=== PATIENT | male | born 1975 | race Caucasian/White ===

== ENCOUNTER → 2017-05-17 | Outpatient (CLI) | payer OTHER ==
[2017-05-17 16:49] LABS: ALBUMIN 3.5 GM/DL (3.2-5.2); ALBUMIN/GLOBULIN RATIO 1.17 (1.00-1.93); ALKALINE PHOSPHATASE 80 U/L (45-117); ALT/SGPT 17 U/L (12-78); ANION GAP 5 MEQ/L (8-16); AST/SGOT 11 U/L (7-37); BILIRUBIN,TOTAL 0.7 MG/DL (0.2-1.0); BLOOD UREA NITROGEN 8 MG/DL (7-18); CALCIUM LEVEL 8.6 MG/DL (8.5-10.1); CARBON DIOXIDE LEVEL 30 MEQ/L (21-32); CHLORIDE LEVEL 106 MEQ/L (98-107); CREATININE FOR GFR 0.77 MG/DL (0.70-1.30); FERRITIN 69 NG/ML (26-388); GLOMERULAR FILTRATION RATE > 60.0 (>60); GLUCOSE, FASTING 90 MG/DL (70-105); MAGNESIUM LEVEL 2.4 MG/DL (1.8-2.4); PERCENT SATURATION 35.2 % (19.7-50.0); PHOSPHORUS LEVEL 3.5 MG/DL (2.5-4.9); POTASSIUM SERUM 4.7 MEQ/L (3.5-5.1); SODIUM LEVEL 141 MEQ/L (136-145); TOTAL IRON BINDING CAPACITY 321 UG/DL (250-450); TOTAL PROTEIN 6.5 GM/DL (6.4-8.2)
[2017-05-17 16:50] LABS: VITAMIN B12 LEVEL 307 PG/ML (247-911)
[2017-05-17 17:12] LABS: BASO % 0.4 % (0.0-1.0); EOS # 0.1 10^3/uL (0.0-0.50); EOS % 0.7 % (0.0-3.0); IMMATURE GRANULOCYTE % 0.3 % (0-0); LYMPH # 2.2 10^3/uL (1.5-4.5); LYMPH % 32.2 % (24.0-44.0); MEAN CORPUSCULAR HEMOGLOBIN 31.3 pg (27.0-33.0); MEAN CORPUSCULAR HGB CONC 33.1 g/dl (32.0-36.5); MEAN CORPUSCULAR VOLUME 94.7 fl (80.0-96.0); MONO # 0.5 10^3/uL (0.0-0.8); MONO % 6.9 % (0.0-5.0); NEUTROPHILS % 59.5 % (36.0-66.0); PLATELET COUNT, AUTOMATED 301 10^3/uL (150-450); RED CELL DISTRIBUTION WIDTH 12.6 % (11.5-14.5); WHITE BLOOD COUNT 6.7 10^3/uL (4.0-10.0)
[2017-05-20 11:33] LABS: PRETREATED FOLATE FOR RBCFOL 8.7 NG/ML
== END ==
LOC: M WUC 11:05
PROVIDERS: ATTEND Surgery
DX: K91.2 Postsurgical malabsorption, not elsewhere classified (principal); Z98.84 Bariatric surgery status

== ENCOUNTER 2018-02-12 07:50 | Emergency (ER) | payer OTHER, MEDICAID, SELFPAY ==
[2018-02-12 08:25] LABS: BASO # 0.1 10^3/uL (0.0-0.2); BASO % 0.8 % (0.0-1.0); HEMATOCRIT 50.1 % (42.0-52.0); HEMOGLOBIN 17.1 g/dl (13.5-17.5); IMMATURE GRANULOCYTE % 0.3 % (0-3.0); LYMPH # 1.3 10^3/uL (1.5-4.5); LYMPH % 14.8 % (24.0-44.0); MEAN CORPUSCULAR HEMOGLOBIN 31.8 pg (27.0-33.0); MEAN CORPUSCULAR HGB CONC 34.1 g/dl (32.0-36.5); MEAN CORPUSCULAR VOLUME 93.1 fl (80.0-96.0); MONO # 0.6 10^3/uL (0.0-0.8); MONO % 7.3 % (0.0-5.0); NEUTROPHILS # 6.6 10^3/uL (1.8-7.7); NEUTROPHILS % 76.8 % (36.0-66.0); PLATELET COUNT, AUTOMATED 329 10^3/uL (150-450); RED BLOOD COUNT 5.38 10^6/uL (4.30-6.10); RED CELL DISTRIBUTION WIDTH 13.6 % (11.5-14.5); WHITE BLOOD COUNT 8.7 10^3/uL (4.0-10.0)
[2018-02-12] MEDS: NS 1,000 ML IV ×2 (08:26)
[2018-02-12 08:36] LABS: INR 1.13; PARTIAL THROMBOPLASTIN TIME 28.3 SECONDS (25.4-37.6); PROTHROMBIN TIME 14.6 SECONDS (12.1-14.4)
[2018-02-12 08:44] LABS: AMPHETAMINES LEVEL URINE NEGATIVE (NEGATIVE); BARBITURATES URINE NEGATIVE (NEGATIVE); BENZODIAZEPINES URINE NEGATIVE (NEGATIVE); CANNABINOIDS URINE NEGATIVE (NEGATIVE); COCAINE METABOLITE URINE NEGATIVE (NEGATIVE); METHADONE URINE NEGATIVE (NEGATIVE); OPIATES URINE NEGATIVE (NEGATIVE); PHENCYCLIDINE URINE NEGATIVE (NEGATIVE)
[2018-02-12 08:57] LABS: ALBUMIN 3.7 GM/DL (3.2-5.2); ALBUMIN/GLOBULIN RATIO 1.16 (1.00-1.93); ALKALINE PHOSPHATASE 88 U/L (45-117); ALT/SGPT 21 U/L (12-78); ANION GAP 10 MEQ/L (8-16); AST/SGOT 28 U/L (7-37); BILIRUBIN,DIRECT 0.2 MG/DL (0.0-0.2); BILIRUBIN,TOTAL 2.3 MG/DL (0.2-1.0); BLOOD UREA NITROGEN 8 MG/DL (7-18); CALCIUM LEVEL 9.1 MG/DL (8.5-10.1); CARBON DIOXIDE LEVEL 25 MEQ/L (21-32); CHLORIDE LEVEL 106 MEQ/L (98-107); CPK CREATINE PHOSPHOKINASE 210 U/L (39-308); CREATININE FOR GFR 0.86 MG/DL (0.70-1.30); GLOMERULAR FILTRATION RATE > 60.0 (>60); GLUCOSE, FASTING 134 MG/DL (70-100); POTASSIUM SERUM 4.7 MEQ/L (3.5-5.1); SALICYLATE LEVEL < 1.7 MG/DL (5.0-30.0); SODIUM LEVEL 141 MEQ/L (136-145); TOTAL PROTEIN 6.9 GM/DL (6.4-8.2)
[2018-02-12 08:58] LABS: ETHYL ALCOHOL (ETHANOL) < 0.003 % (0.000-0.010)
[2018-02-12 08:59] LABS: ACETAMINOPHEN LEVEL < 2.0 UG/ML (10.0-30.0)
[2018-02-13 06:48] LABS: FOLATE 16.2 NG/ML; VITAMIN B12 LEVEL 192 PG/ML
== END 2018-02-12 10:46 | disposition home or self-care (01) ==
LOC: M ED 07:50
DX: Z71.1 Person with feared health complaint in whom no diagnosis is made (principal); E78.9 Disorder of lipoprotein metabolism, unspecified; F33.9 Major depressive disorder, recurrent, unspecified; Z98.0 Intestinal bypass and anastomosis status; Z87.891 Personal history of nicotine dependence; Z84.89 Family history of other specified conditions; Z79.899 Other long term (current) drug therapy
CPT/HCPCS: 93005

== ENCOUNTER 2018-02-24 20:37 | Emergency (ER) | payer OTHER, MEDICAID ==
[2018-02-24 21:52] LABS: HEMATOCRIT 42.8 % (42.0-52.0); HEMOGLOBIN 14.5 g/dl (13.5-17.5); MEAN CORPUSCULAR HEMOGLOBIN 31.9 pg (27.0-33.0); MEAN CORPUSCULAR HGB CONC 33.9 g/dl (32.0-36.5); MEAN CORPUSCULAR VOLUME 94.1 fl (80.0-96.0); PLATELET COUNT, AUTOMATED 278 10^3/uL (150-450); RED BLOOD COUNT 4.55 10^6/uL (4.30-6.10); RED CELL DISTRIBUTION WIDTH 13.8 % (11.5-14.5); WHITE BLOOD COUNT 8.5 10^3/uL (4.0-10.0)
[2018-02-24 22:11] LABS: AMPHETAMINES LEVEL URINE NEGATIVE (NEGATIVE); BARBITURATES URINE NEGATIVE (NEGATIVE); BENZODIAZEPINES URINE NEGATIVE (NEGATIVE); CANNABINOIDS URINE NEGATIVE (NEGATIVE); COCAINE METABOLITE URINE NEGATIVE (NEGATIVE); METHADONE URINE NEGATIVE (NEGATIVE); OPIATES URINE NEGATIVE (NEGATIVE); PHENCYCLIDINE URINE NEGATIVE (NEGATIVE)
[2018-02-24 22:15] LABS: ACETAMINOPHEN LEVEL < 2.0 UG/ML (10.0-30.0); ALBUMIN 3.1 GM/DL (3.2-5.2); ALBUMIN/GLOBULIN RATIO 1.15 (1.00-1.93); ALKALINE PHOSPHATASE 69 U/L (45-117); ALT/SGPT 18 U/L (12-78); ANION GAP 8 MEQ/L (8-16); AST/SGOT 11 U/L (7-37); BILIRUBIN,DIRECT < 0.1 MG/DL (0.0-0.2); BILIRUBIN,TOTAL 0.2 MG/DL (0.2-1.0); BLOOD UREA NITROGEN 5 MG/DL (7-18); CALCIUM LEVEL 8.1 MG/DL (8.5-10.1); CARBON DIOXIDE LEVEL 26 MEQ/L (21-32); CHLORIDE LEVEL 113 MEQ/L (98-107); CREATININE FOR GFR 0.65 MG/DL (0.70-1.30); ETHYL ALCOHOL (ETHANOL) 0.164 % (0.000-0.010); GLOMERULAR FILTRATION RATE > 60.0 (>60); GLUCOSE, FASTING 82 MG/DL (70-100); POTASSIUM SERUM 3.6 MEQ/L (3.5-5.1); SALICYLATE LEVEL 3.6 MG/DL (5.0-30.0); SODIUM LEVEL 147 MEQ/L (136-145); TOTAL PROTEIN 5.8 GM/DL (6.4-8.2)
== END 2018-02-25 00:01 | disposition home or self-care (01) ==
LOC: M ED 02-25 00:01
DX: F10.220 Alcohol dependence with intoxication, uncomplicated (principal); Z98.84 Bariatric surgery status; Z79.899 Other long term (current) drug therapy
CPT/HCPCS: 80320

== ENCOUNTER → 2018-04-17 | Outpatient (CLI) | payer MEDICAID | LOC: M OUTALCOH 07:52 | DX: F10.20 Alcohol dependence, uncomplicated (principal) ==

== ENCOUNTER 2018-04-27 15:08 | Outpatient (RCR) | payer MEDICAID | END 2018-05-17 | LOC: M OUTALCOH 05-02 09:00 | DX: F10.20 Alcohol dependence, uncomplicated (principal); F17.200 Nicotine dependence, unspecified, uncomplicated ==

== ENCOUNTER 2018-05-19 08:24 | Outpatient (RCR) | payer MEDICAID | END 2018-06-16 | LOC: M OUTALCOH 08:24 | DX: F10.20 Alcohol dependence, uncomplicated (principal); F17.200 Nicotine dependence, unspecified, uncomplicated ==

== ENCOUNTER → 2018-07-17 | Outpatient (RCR) | payer MEDICAID ==
[~2018-07-17] MED LIST: B121000T PO; BUPR150T5; CALC600T60 PO; CITA-230; CITA-230 PO; DULO30CA47 PO; GABA600T4 PO; PRAZ5CAP PO; VITA200015 PO; VITMTA PO; VIVI380I IM
== END ==
LOC: M OUTALCOH 06-19 11:07
PROVIDERS: ATTEND Psychiatry & Neurology Psychiatry
DX: F10.20 Alcohol dependence, uncomplicated (principal); F17.200 Nicotine dependence, unspecified, uncomplicated

== ENCOUNTER 2018-07-26 13:30 | Inpatient (IN) | payer MEDICAID, OTHER ==
[~2018-07-26] VITALS: Ht 172.7 cm; Wt 90.7 kg
[~2018-07-26 13:30] MED LIST changes: -B121000T PO; -CALC600T60 PO; -CITA-230 PO; -DULO30CA47 PO; -GABA600T4 PO; -PRAZ5CAP PO; -VITA200015 PO; -VITMTA PO; -VIVI380I IM
[2018-07-26] MEDS ORDERED: PRAZ5CAP PO (13:42)
[2018-07-26] MEDS ORDERED: DULO30CA47 PO (13:42)
[2018-07-26] MEDS ORDERED: VIVI380I IM (13:45)
[2018-07-26] MEDS ORDERED: CITA-230 PO (13:45)
[2018-07-26] MEDS ORDERED: GABA600T4 PO (13:45)
[2018-07-26 14:41] LABS: HEMATOCRIT 43.3 % (42.0-52.0); HEMOGLOBIN 14.6 g/dl (13.5-17.5); MEAN CORPUSCULAR HEMOGLOBIN 30.8 pg (27.0-33.0); MEAN CORPUSCULAR HGB CONC 33.7 g/dl (32.0-36.5); MEAN CORPUSCULAR VOLUME 91.4 fl (80.0-96.0); PLATELET COUNT, AUTOMATED 302 10^3/uL (150-450); RED BLOOD COUNT 4.74 10^6/uL (4.30-6.10); WHITE BLOOD COUNT 8.7 10^3/uL (4.0-10.0)
[2018-07-26 15:06] LABS: AMPHETAMINES LEVEL URINE NEGATIVE (NEGATIVE); BARBITURATES URINE NEGATIVE (NEGATIVE); BENZODIAZEPINES URINE NEGATIVE (NEGATIVE); CANNABINOIDS URINE NEGATIVE (NEGATIVE); COCAINE METABOLITE URINE NEGATIVE (NEGATIVE); METHADONE URINE NEGATIVE (NEGATIVE); OPIATES URINE NEGATIVE (NEGATIVE); PHENCYCLIDINE URINE NEGATIVE (NEGATIVE)
[2018-07-26 15:21] LABS: ACETAMINOPHEN LEVEL < 2.0 UG/ML (10.0-30.0); ALBUMIN 3.8 GM/DL (3.2-5.2); ALT/SGPT 16 U/L (12-78); BILIRUBIN,DIRECT 0.1 MG/DL (0.0-0.2); BILIRUBIN,TOTAL 0.5 MG/DL (0.2-1.0); BLOOD UREA NITROGEN 6 MG/DL (7-18); CALCIUM LEVEL 8.9 MG/DL (8.5-10.1); CARBON DIOXIDE LEVEL 29 MEQ/L (21-32); CHLORIDE LEVEL 108 MEQ/L (98-107); CREATININE FOR GFR 0.91 MG/DL (0.70-1.30); ETHYL ALCOHOL (ETHANOL) < 0.003 % (0.000-0.010); GLOMERULAR FILTRATION RATE > 60.0 (>60); GLUCOSE, FASTING 88 MG/DL (70-100); POTASSIUM SERUM 4.1 MEQ/L (3.5-5.1); SALICYLATE LEVEL 2.9 MG/DL (5.0-30.0); SODIUM LEVEL 143 MEQ/L (136-145); THYROID STIMULATING HORMONE 0.798 uIU/ML (0.358-3.740); TOTAL PROTEIN 6.3 GM/DL (6.4-8.2)
[2018-07-26] MEDS ORDERED: B121000T PO (17:40)
[2018-07-26] MEDS ORDERED: VITA200015 PO (17:40)
[2018-07-26] MEDS ORDERED: VITMTA PO (17:40)
[2018-07-26] MEDS ORDERED: CALC600T60 PO (17:40)
[2018-07-26] MEDS ORDERED: hydrOXYzine 25 MG TAB PO PRN (18:00)
[2018-07-26] MEDS ORDERED: ACETAMINOPHEN TAB 650MG DOSE (2X325MG) PO PRN (18:00)
[2018-07-26] MEDS ORDERED: MOM 30ML SUSPENSION UDC PO PRN (18:00)
[2018-07-26] MEDS ORDERED: MAALOX 30 ML SUSP *UDC PO PRN (18:00)
[2018-07-26] MEDS: traZODone 50 MG TAB PO PRN (21:27)
[2018-07-27 07:12] VITALS: BP 108/57
[2018-07-27] MEDS: NICOTINE 14 MG/24 HR TRANSDERMAL TD SCH (08:52)
--- NOTE | 2018-07-27 09:28 | HPEPDOC ---
[facility] Medical History & Physical Date of Admission Jul 26, 2018 History and Physical PCP: Dr Cohen ATTENDING: Dr. Evan Rodriguez HPI: 42 yo M admitted to [facility] for unspecified depressive disorder, being medically examined today. No acute medical complaints today. Patient states he takes prazosin for history of nightmares. He takes gabapentin for his anxiety. Vivitrol is prescribed as per Dr. Vallecillo. Denies any fevers, chills, weakness, fatigue, VASQUEZ, CP, SOB, cough, palpitations, abdominal pain, N/V/D or changes in bowel or bladder habits. PMHx: Anxiety Depression PTSD Alcohol use PSHX: Gastric bypass procedure. BMI currently 28.3. Right lower extremity fracture Left knee arthroscopy SOCHX: Resides in: [facility] [place][Note 2] Marital Status: Kids: 3 Employment: Disabled Tobacco use: 2 cigars per day ETOH: Patient states his last drink was 11/19/17, he attended rehabilitation. Illicit Drugs: Denies IV Drug Use: Denies Tattoos done unprofessionally: Denies FAMHX: Mother: Alive, hypertension, depression, CAD/CABG, gastric bypass Father: Alive, pacemaker Siblings: 3 brothers, 3 sisters Alive, history of COPD, gastric bypass, diabetes Children: Alive, well ROS: As noted in HPI, otherwise 11pt ROS of systems reviewed and remarkable only for patient states he has been having some right ankle pain and has been using a brace. He does not recall any injury. He has not had any imaging completed. He takes Tylenol as needed. PE: GEN: 42 yo M, appears stated age. Well-nourished, well developed. No acute distress. Alert and oriented x 3. Pleasant, interactive. HEENT: Normocephalic, atraumatic. Pupils are equal, round, and reactive to light. Extraocular movements are intact. No nystagmus appreciated. Sclera are nonicteric. Conjunctiva without injection. Nose midline. Nasal turbinates with out bogginess. EACs both patent BL. TMs both visualized and berg with good cone of light, no bulging or erythema. No facial asymmetry. Moist mucous membranes. Dentition fair. Pharynx pink and moist, no cobblestoning. Neck supple, trachea midline. No lymphadenopathy or thyromegaly appreciated. CHEST: Regular rate and rhythm, +S1, +S2 LUNGS: Clear to auscultation bilaterally. No wheezes, rales, or rhonchi. Breathing appears symmetric and easy. Patient is speaking in full sentences. No accessory muscle use. ABD: Round, soft, non-tender, non-distended. +Bowel sounds throughout. No rebound or guarding. No costovertebral angle tenderness. EXT: Pulses 2+ bilaterally dorsalis pedis and radial. No lower extremity edema appreciated. SKIN: [place], dry, warm. Capillary refill <2sec. No rashes. NEURO: Alert and oriented x 3. Cranial nerves III-XII are intact. No focal deficits appreciated. EKG: pending A&P: 42 yo M admitted to [facility] for unspecified depressive disorder 1. Psych. Plan per Psychiatry. Obtain baseline EKG to assure the safety of psychiatric medications as they can prolong the QT interval. 2. Nicotine dependence. Patch available. 3. Right ankle pain. Continue brace as needed. Check x-ray of right ankle. Continue Tylenol 650 mg every 6 hours as needed. 4. Follow up with PCP on discharge. 5. History of Substance use. Management per psychiatry. Vital Signs Vital Signs Date Time Temp Pulse Resp B/P (MAP) Pulse Ox O2 Delivery O2 Flow Rate FiO2 07/27/18 07:12 99.0 56 16 108/57 (74) 07/26/18 18:02 99 Room Air Laboratory Data Labs 24H Laboratory Tests 2 07/26/18 13:54: Nucleated Red Blood Cells % (auto) 0.0, Anion Gap 6L, Glomerular Filtration Rate > 60.0, Calcium Level 8.9, Aspartate Amino Transf (AST/SGOT) 11, Alanine Aminotransferase (ALT/SGPT) 16, Alkaline Phosphatase 84, Total Bilirubin 0.5, Direct Bilirubin 0.1, Total Protein 6.3L, Albumin 3.8, Albumin/Globulin Ratio 1.52, Thyroid Stimulating Hormone (TSH) 0.798, Salicylates Level 2.9L, Urine Amphetamines Screen NEGATIVE, Urine Benzodiazepines Screen NEGATIVE, Urine Opiates Screen NEGATIVE, Urine Methadone Screen NEGATIVE, Acetaminophen Level < 2.0L, Urine Barbiturates Screen NEGATIVE, Urine Phencyclidine Screen NEGATIVE, Urine Cocaine Metabolite Screen NEGATIVE, Urine Cannabinoids Screen NEGATIVE, Ethyl Alcohol Level < 0.003 CBC/BMP Laboratory Tests 07/26/18 13:54 Red Blood Count 4.74, Mean Corpuscular Volume 91.4, Mean Corpuscular Hemoglobin 30.8, Mean Corpuscular Hemoglobin Concent 33.7, Red Cell Distribution Width 12.6 Home Medications Scheduled Calcium Carbonate (Calcium) 600 Mg Tab, 600 MG PO DAILY Cholecalciferol (Vitamin D) 2,000 Unit Tab, 2,000 UNIT PO DAILY Citalopram Hydrobromide (Citalopram) 20 Mg Tab, 20 MG PO DAILY SUPPOSED TO START TAKING HALF DOSE TOMORROW (07/27/18) FOR 3 DAYS (STARTING DULOXETINE) Cyanocobalamin (B12) 1,000 Mcg Tab, 1,000 MCG PO DAILY Duloxetine Hydrochloride (Duloxetine Hydrochloride) 30 Mg Cap, 30 MG PO DAILY STARTING TUESDAY (07/30/18) Gabapentin (Gabapentin) 600 Mg Tab, 600 MG PO TID Multivitamins *[facility] STOCKED* (Thera M Plus *[facility] STOCKED*) 1 Tab Tab, 1 TAB PO DAILY Naltrexone (Vivitrol) 380 Mg Inj, 380 MG IM Q30D 16 Prazosin Hcl (Prazosin HCl) 5 Mg Cap, 5 MG PO QHS Allergies Coded Allergies: No Known Drug Allergy (Unverified Allergy, Unknown, 10/17/12) Veronica Veloz Jul 27, 2018 09:28
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
[2018-07-27] MEDS ORDERED: VENLAFAXINE **XR** 75MG CAPSULE PO ONE (12:45)
[2018-07-27] MEDS: busPIRone 5 MG TAB PO SCH ×2 (15:56→21:13)
[2018-07-27 18:00] VITALS: BP 119/65
[2018-07-27] MEDS: traZODone 50 MG TAB PO PRN (21:13)
--- NOTE | 2018-07-28 01:50 | REP ---
Clinical: Right ankle pain. Technique: AP, lateral, bilateral oblique views of the right ankle. Findings: Moderate post traumatic arthritic changes are appreciated. Evidence for old injury including two compression screws through the distal tibia. Degenerative changes include cortical irregularity and subchondral sclerosis with spurring along the tibial plafond with minimal medial joint space narrowing. Spurring at the medial malleolus and along the anterior margin of the talus also identified. No acute fracture dislocation. Impression: Moderate chronic post traumatic arthritic changes. Electronically Signed by Lawrence Hagen MD 07/28/2018 01:42 A
[2018-07-28 06:05] VITALS: BP 91/54
[2018-07-28] MEDS: VENLAFAXINE **XR** 75MG CAPSULE PO SCH (08:42)
[2018-07-28] MEDS: busPIRone 5 MG TAB PO SCH ×3 (08:42→20:54)
[2018-07-28] MEDS: NICOTINE 14 MG/24 HR TRANSDERMAL TD SCH (08:42)
--- NOTE | 2018-07-28 10:18 | MHIPNPDOC ---
[facility] Progress Note Progress Note DATE OF SERVICE: 07/28/18 HISTORY: Patient is a 42 -year-old , male, with a history of depression and PTSD treated at [facility] who was sent to ED after being seen at [facility] for routine appt endorsing depressed mood for the past 5 days that has now turned into anger and passive SI (better off sleeping and not waking up) due to multiple psychosocial stressors that include current having dispute with pt's kids from previous marriage worried they may not want to visit anymore, bad relationship with ex-, mother befriending ex-, and finances. Pt denied active SI, intent/plan. He endorsed a history of alcoholism and has been sober since 04/04 when he entered rehab (slipped up twice since, no alcohol since 06/21/18). He endorsed social anxiety and not wanting to be around people/crowds, history of panic attack in [facility] due to crowd, causes him to want to "live in the [place] alone with no one around.) Pt denies HI, hallucinations, delusions. Pt seen today and states he's been really depressed since he completed IOP for alcoholism at [facility]. States "last Tuesday my kids were visiting and blasted me with what kids didn't do. She told my children they were worthless." States "worthless is a trigger for me b/c I was told I was worthless by kids at school when I was a kid which is why I have PTSD." Pt states he he feels better today. Agreeable to medication adjustments. States was cross titrating celexa to cymbalta due to risk qt elevation with celexa and it not working. Recommended effexor xr instead of cymbalta (both SNRIs) as in my experience effexor more beneficial for mood and anxiety. Pt agreeable. Also agreeable to buspar rather than gabapentin for anxiety. Risks/benefits for both discussed. VITAL SIGNS: See below. NEW TEST RESULTS: See below. CURRENT MEDICATIONS: See below. MENTAL STATUS EXAMINATION: General Appearance: well groomed, appears stated age, hospital scubs/clothing Build: average Demeanor: average, other (pleasant, talkative - gave me whole story, hard to cut off and end interview (seemed to think it was a psychotherapy visit)) Eye Contact: average Activity: average, less anxious Behavior: cooperative Speech: clear, spontaneous, normal volume, reg/rate,rhythm,volume Mood: less depressed, less anxious Mood "better" Affect: full, appropriate, congruent, less anxious Thought Process: logical/linear, intact Thought Content (Delusions): none reported, denies SI, HI, AVH Thought Content (Other): none reported Thought Content (Aggressive): none reported Perception (Hallucinations): none reported Perception (Other): none reported Cognition (Impairment of): none reported Cognition(Intelligence Est.): average Oriented: Awake, Alert, Oriented times three Insight: fair Judgment: Fair Psychosis: Denies DIAGNOSES: PTSD Adjustment d/o with depression and anxiety alcohol use d/o in short term remission ASSESSMENT:Pt seen and states that his mood is ok as meds beneficial, anxiety is improved. States he spoke with his yesterday and that she complained to him that she was upset due to him not being home and helping her with the snow. States he slept well last night. Feels he is tolerating his medications and they're beneficial. He is not attending groups and highly encouraged to go as part of his treatment here. He denies insomnia, SI/HI, hallucinations, delusions. Pt feels safe here. MANAGEMENT PLAN: continue current plan Medications: effexor xr 75mg daily buspar 5mg tid prazosin 5mg qhs trazodone 50mg qhs prn insomnia TIME SPENT: 30 minutes. Patient is a 42 -year-old , male, with a history of depression and PTSD treated at [facility] who was sent to ED after being seen at [facility] for routine appt endorsing depressed mood for the past 5 days that has now turned into anger and passive SI (better off sleeping and not waking up) due to multiple psychosocial stressors that include current having dispute with pt's kids from previous marriage worried they may not want to visit anymore, bad relationship with ex- , mother befriending ex-, and finances. Pt denied active SI, intent/plan. He endorsed a history of alcoholism and has been sober since 04/04 when he entered rehab (slipped up twice since, no alcohol since 06/21/18). He endorsed social anxiety and not wanting to be around people/crowds, history of panic attack in [facility] due to crowd, causes him to want to "live in the [place] alone with no one around.) Pt denies HI, hallucinations, delusions. Pt seen today and states he's been really depressed since he completed IOP for alcoholism at [facility]. States "last Tuesday my kids were visiting and blasted me with what kids didn't do. She told my children they were worthless." States "worthless is a trigger for me b/c I was told I was worthless by kids at school when I was a kid which is why I have PTSD." Pt states he he feels better today. Agreeable to medication adjustments. States was cross titrating celexa to cymbalta due to risk qt elevation with celexa and it not working. Recommended effexor xr instead of cymbalta (both SNRIs) as in my experience effexor more beneficial for mood and anxiety. Pt agreeable. Also agreeable to buspar rather than gabapentin for anxiety. Risks/benefits for both discussed. Psychiatric Review of Systems Depression (2 or more weeks): depressed mood, difficulty concentrating, suicidal thoughts (passive) Rula (4 or more days of): irritable/elevated mood Psychosis: denies PTSD: history of trauma, nightmares and flashbacks, hypervigilance, avoidance of triggers, mood fluctuations Anxiety: gen/non-specific anxiety, situational anxiety, stressor related anxiety, panic attacks, other (social) Anxiety/ 6 months or more of: restlessness, keyed up, difficulty concentrating, irritability, muscle tension Past Psychiatric History Previous Psychiatric Diagnosis: depression, social anxiety Previous Psychiatric Admissions: denies Suicide Attempts: denies Psychiatric Follow-up: [facility] Psychiatric medications: cymbalta 30mg daily, celexa 20mg daily, Vivitrol 380mg im (07/02/18), gabapentin 600mg tid, prazosin 5mg qhs Past Medical History Medical Problems denies Head Injury: No Seizures: No Hospitalizations: No Surgeries: Yes (gastric bypass, rt leg and lt knee surgery) Family Medical/Psychiatric HX Medical Problems noncontributory Psychiatric Disorders: No Addiction: No Suicide Attemps/Completions: No Addiction History nicotine, alcohol (completely sober since 06/21/18 on Vivitrol and compliant) Social History Childhood: born and raised [facility], 2 parent home, youngest of 7 (3 brothers and sisters), bullied when in school. 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 [place] (resigned after ended rehab b/c triggering) Social Support: , mother Legal: denies Marital: , 1 9y/o child with current , 1 ex- he shares custody of 2 kids, 15 and 13, with (poor relationship with ex-) Mental Status Examination Mental Status Examination General Appearance: well groomed, appears stated age, hospital scubs/clothing Build: average Demeanor: average, other (pleasant, talkative - gave me whole story, hard to cut off and end interview (seemed to think it was a psychotherapy visit)) Eye Contact: average Activity: average, anxious Behavior: cooperative Speech: clear, spontaneous, normal volume, reg/rate,rhythm,volume Mood: depressed, anxious, irritable Mood "angry" Affect: full, appropriate, incongruent, anxious Thought Process: logical/linear, intact Thought Content (Delusions): none reported, denies SI, HI, AVH Thought Content (Other): none reported Thought Content (Aggressive): none reported Perception (Hallucinations): none reported Perception (Other): none reported Cognition (Impairment of): none reported Cognition(Intelligence Est.): average Oriented: Awake, Alert, Oriented times three Insight: fair Judgment: Fair Psychosis: Denies Diagnoses PTSD Adjustment d/o with depression and anxiety alcohol use d/o in short term remission Assement/Plan Assessment Pt with a history of PTSD and easily triggered by the word "worthless" feeling depressed, isolative, angry due to his current calling his children from a previous marriage worthless b/c they weren't doing what she told them right when she told them to do it. States that she hasn't apologized for her actions and will not accept accountability, how she may have affected him or his kids which is causing him more anger and depression, desire to isolate. Agreeable to med adjustments. Denies SI/HI, hallucinations, delusions. Denies passive SI as well. Feels safe here. Initial Treatment Plan 1. Patient was admitted on a 9.39 status. 2. Complete history was obtained. 3. With patients permission, family will be contacted and database will be expanded. 4. Patients medication regimen will be reviewed and changed accordingly. 5. Patient will be provided with protected environment. 6. Patient will be treated with individual, group, and milieu therapies. 7. Patient will receive supportive psych-education. 8. Discharge planning will commence immediately. 9. Outpatient follow-up treatment will be strongly recommended. 10. The initial treatment plan will focus initially on: * Depression. * Risk for suicide. * Substance abuse. 11. d/c cymbalta, celexa, gabapentin. Start effexor xr 75mg daily, buspar 5mg tid. Continue prazosin 5mg qhs. Vital Signs Vital Signs Date Time Temp Pulse Resp B/P (MAP) Pulse Ox O2 Delivery O2 Flow Rate FiO2 07/28/18 06:05 97.9 50 16 91/54 (66) Room Air 07/26/18 18:02 99 Current Medications Current Medications Acetaminophen (Tylenol Tab) 650 mg Q6HP PRN PO HEADACHE or DISCOMFORT Last administered on 07/27/18at 09:45; Start 07/26/18 at 18:00 Al Hydrox/Mg Hydrox/Simethicone (Mylanta) 30 ml Q4HP PRN PO HEARTBURN/INDIGESTION; Start 07/26/18 at 18:00 Buspirone HCl (Buspar) 5 mg TID PO Last administered on 07/28/18at 08:42; Start 07/27/18 at 16:00 Home Med (Med Rec Complete!) ASDIRECTED XX ; Start 07/26/18 at 17:45; Stop 07/26/18 at 17:45; Status DC Hydroxyzine HCl (Atarax) 25 mg Q6HP PRN PO ANXIETY/AGITATION; Start 07/26/18 at 18:00 Magnesium Hydroxide (Milk Of Magnesia) 30 ml DAILYPRN PRN PO CONSTIPATION; Start 07/26/18 at 18:00 Nicotine (Nicoderm Cq 14mg) 1 patch DAILY TD Last administered on 07/28/18at 08:42; Start 07/27/18 at 09:00 Trazodone HCl (Desyrel) 50 mg QHSP PRN PO INSOMNIA Last administered on 07/27/18at 21:13; Start 07/26/18 at 18:00 Venlafaxine HCl (Effexor Xr) 75 mg DAILY PO Last administered on 07/28/18at 08:42; Start 07/28/18 at 09:00 Allergies Coded Allergies: No Known Drug Allergy (Unverified Allergy, Unknown, 10/17/12) MICHAEL HUTCHINSON DO Jul 28, 2018 10:18 am
[2018-07-28 18:00] VITALS: BP 122/64
[2018-07-28] MEDS: traZODone 50 MG TAB PO PRN (20:54)
[2018-07-28] MEDS: PRAZOSIN 1 MG CAP PO SCH (20:54)
--- NOTE | 2018-07-28 21:47 | ECGEPIP ---
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 Electronically Signed On 07-28-2018 21:47:48 EST by Sterling Blackwood
[2018-07-29 06:20] VITALS: BP 112/56
[2018-07-29] MEDS: VENLAFAXINE **XR** 75MG CAPSULE PO SCH (08:19)
[2018-07-29] MEDS: busPIRone 5 MG TAB PO SCH ×3 (08:19→21:17)
[2018-07-29] MEDS: NICOTINE 14 MG/24 HR TRANSDERMAL TD SCH (08:20)
--- NOTE | 2018-07-29 17:48 | MHIPN ---
DATE: 07/29/2018 CHIEF COMPLAINT: Feels better. SUBJECTIVE: Seen for followup. Indicates has been feeling better, feels the medicines are working, he feels more confident, less anxious, less depressed. He says he has been sleeping well, appetite has been good. Says his is due to visit tomorrow, is a bit anxious about that. MENTAL STATUS EXAMINATION: He is neat. He is cooperative. No agitation, no psychomotor retardation. He is coherent. Affect is broad. Denies any thoughts of harming himself or anyone else. There is currently no evidence of any psychosis. Cognition is grossly intact. Judgment and insight fair. ASSESSMENT: Posttraumatic stress disorder. Adjustment disorder with depression and anxiety. Alcohol use disorder. PLAN: He is to continue with current care, observations, and encourage participation in activities in the unit. It is too soon for the venlafaxine and the BuSpar to benefit him, we discussed this. The fact that he is hospitalized, and has had time to contemplate on various matters, has possibly helped him as well. Further recommendations will be made depending on the clinical picture. Vital signs: Blood pressure 112/56, pulse 58, temperature 98.1.
[2018-07-29 18:00] VITALS: BP 108/62
[2018-07-29] MEDS: PRAZOSIN 1 MG CAP PO SCH (21:17)
[2018-07-29] MEDS: traZODone 50 MG TAB PO PRN (21:17)
[2018-07-30 06:00] VITALS: BP 107/55
[2018-07-30] MEDS: VENLAFAXINE **XR** 75MG CAPSULE PO SCH (09:07)
[2018-07-30] MEDS: busPIRone 5 MG TAB PO SCH ×3 (09:07→20:57)
[2018-07-30] MEDS: NICOTINE 14 MG/24 HR TRANSDERMAL TD SCH (09:07)
[2018-07-30 18:00] VITALS: BP 110/56
[2018-07-30] MEDS: traZODone 50 MG TAB PO PRN (20:58)
[2018-07-30 20:59] VITALS: BP 116/69
[2018-07-30] MEDS: PRAZOSIN 1 MG CAP PO SCH (20:59)
[2018-07-31 06:06] VITALS: BP 103/58
[2018-07-31] MEDS: VENLAFAXINE **XR** 75MG CAPSULE PO SCH (08:03)
[2018-07-31] MEDS: NICOTINE 14 MG/24 HR TRANSDERMAL TD SCH (08:03)
[2018-07-31] MEDS: busPIRone 5 MG TAB PO SCH (08:03)
--- NOTE | 2018-07-31 09:13 | MHIPN ---
DATE: 07/30/2018 CHIEF COMPLAINT: Says feels good. SUBJECTIVE: Seen for followup in the presence of staff. Says has generally been feeling good, is a bit anxious, his is due to visit later today, says he hopes it does not become a tense visit, per the patient says he is concerned she may express her anger at him being here. He wishes that they can talk about their relationship once he starts seeing his therapist. He is hoping that he will be discharged tomorrow, and that he will see his [facility] at [facility], he sees Keke Sargent, and has an appointment for that tomorrow. MENTAL STATUS EXAMINATION: Neat. Cooperative. Coherent. Affect broad. Denies any suicidal thoughts or intents. No homicidal ideas or intents. No evidence of psychosis. Cognition grossly intact. His judgment is good, it is improved. Insight is fair. ASSESSMENT: Post traumatic stress disorder by history. Adjustment disorder with depression and anxiety. Alcohol use disorder. PLAN: Continue current care. I would suggest encourage participation in activities in the unit. Should such progress continue, will be assessed tomorrow, before discharge. VITAL SIGNS: Blood pressure 107/55. Pulse 50. Temperature 97.4.
--- NOTE | 2018-07-31 09:17 | MHDSPDOC ---
[facility] Discharge Summary Discharge Summary DATE OF ADMISSION: Jul 26, 2018 at 5:49 pm DATE OF DISCHARGE: Jul 31, 2018 DISCHARGE DIAGNOSES: PTSD Adjustment d/o with depression and anxiety alcohol use d/o in short term remission REASON FOR ADMISSION: Patient is a 42 -year-old , male, with a history of depression and PTSD treated at [facility] who was sent to ED after being seen at [facility] for routine appt endorsing depressed mood for the past 5 days that has now turned into anger and passive SI (better off sleeping and not waking up) due to multiple psychosocial stressors that include current having dispute with pt's kids from previous marriage worried they may not want to visit anymore, bad relationship with ex-, mother befriending ex-, and finances. Pt denied active SI, intent/plan. He endorsed a history of alcoholism and has been sober since 04/04 when he entered rehab (slipped up twice since, no alcohol since 06/21/18). He endorsed social anxiety and not wanting to be around people/crowds, history of panic attack in [facility] due to crowd, causes him to want to "live in the [place] alone with no one around.) Pt denies HI, hallucinations, delusions. Pt seen today and states he's been really depressed since he completed IOP for alcoholism at [facility]. States "last Tuesday my kids were visiting and blasted me with what kids didn't do. She told my children they were worthless." States "worthless is a trigger for me b/c I was told I was worthless by kids at school when I was a kid which is why I have PTSD." Pt states he he feels better today. Agreeable to medication adjustments. States was cross titrating celexa to cymbalta due to risk qt elevation with celexa and it not working. Recommended effexor xr instead of cymbalta (both SNRIs) as in my experience effexor more beneficial for mood and anxiety. Pt agreeable. Also agreeable to buspar rather than gabapentin for anxiety. Risks/benefits for both discussed. CONSULTANTS INVOLVED: none TREATMENT AND PROGRESS ON THE UNIT : [facility], seen for psychiatric assessment and his outpatient cymbalta and celexa were dischontinued and he was started on effexor xr 75mg daily, buspar 5mg tid, and continued on prazosin 5mg qhs.. He was provided vistaril 25mg q6hr prn anxiety and trazodone 50mg qhs prn insomnia. Pt found his medications beneficial and tolerated them well. He attended groups daily during his stay. His symptoms improved with treatment. On day of discharge he denied depression, anxiety, insomnia, SI/HI, hallucinations, delusions. He was discharged home after family meeting with follow-up at [facility] substance abuse treatment program.. He felt safe for discharge. DISCHARGE ASSESSMENT: Pt seen and states that his mood is good and he's looking forward to going home today. States his family visited him over the weekend and it went well. States meds beneficial, mood and anxiety are improved. States he slept well last night. Feels he is tolerating his medications and they're beneficial. He is attending groups and finding them helpful. He denies depression, irritability, insomnia, SI/HI, hallucinations, delusions. Pt feels safe to be discharged home. MENTAL STATUS EXAMINATION ON DISCHARGE: General Appearance: well groomed, appears stated age, own clothing Build: average Demeanor: average, other (pleasant) Eye Contact: average Activity: average Behavior: cooperative Speech: clear, spontaneous, normal volume, reg/rate,rhythm,volume Mood: euthymic, full "good" Affect: full, appropriate, congruent Thought Process: logical/linear, intact Thought Content (Delusions): none reported, denies SI, HI, AVH Thought Content (Other): none reported Thought Content (Aggressive): none reported Perception (Hallucinations): none reported Perception (Other): none reported Cognition (Impairment of): none reported Cognition(Intelligence Est.): average Oriented: Awake, Alert, Oriented times three Insight: good Judgment: good Psychosis: Denies MEDICATIONS ON DISCHARGE: effexor xr 75mg daily buspar 5mg tid prazosin 5mg qhs trazodone 50mg qhs prn insomnia vistaril 25mg q6hr prn anxiety PLAN/FOLLOWUP ARRANGEMENTS: D/c home with follow-up at [facility] substance abuse treatment program. The amount of time spent in the coordination of care for this patient was approximately 30 minutes. Vital Signs/I&Os Vital Signs Date Time Temp Pulse Resp B/P (MAP) Pulse Ox O2 Delivery O2 Flow Rate FiO2 07/31/18 06:06 97.5 63 14 103/58 (73) Room Air 07/26/18 18:02 99 Medications Scheduled Buspirone HCl (Buspirone HCl) 5 Mg Tab, 5 MG PO TID for anxiety, #30 Calcium Carbonate (Calcium) 600 Mg Tab, 600 MG PO DAILY, (Reported) Cholecalciferol (Vitamin D) 2,000 Unit Tab, 2,000 UNIT PO DAILY, (Reported) Cyanocobalamin (B12) 1,000 Mcg Tab, 1,000 MCG PO DAILY, (Reported) Gabapentin (Gabapentin) 600 Mg Tab, 600 MG PO TID, (Reported) Multivitamins *[facility] STOCKED* (Thera M Plus *[facility] STOCKED*) 1 Tab Tab, 1 TAB PO DAILY, (Reported) Naltrexone (Vivitrol) 380 Mg Inj, 380 MG IM Q30D, (Reported) 16TH Prazosin Hcl (Prazosin HCl) 5 Mg Cap, 5 MG PO QHS, (Reported) Prazosin Hcl (Prazosin HCl) 5 Mg Cap, 5 MG PO QPM for nightmares, #10 Venlafaxine HCl (Venlafaxine HCl ER) 75 Mg Capcr, 75 MG PO DAILY for mood, #10 Scheduled PRN Hydroxyzine HCl (Hydroxyzine HCl) 25 Mg Tab, 25 MG PO Q6HP PRN for ANXIETY/AGITATION, #30 Trazodone HCl (Trazodone HCl) 50 Mg Tab, 50 MG PO QHSP PRN for INSOMNIA, #10 Allergies Coded Allergies: No Known Drug Allergy (Unverified Allergy, Unknown, 10/17/12) MICHAEL HUTCHINSON DO Jul 31, 2018 9:17 am
[2018-07-31] MEDS ORDERED: BUSP5TA PO (09:21)
[2018-07-31] MEDS ORDERED: HYDR-3363 PO (09:21)
[2018-07-31] MEDS ORDERED: PRAZ5CAP PO (09:21)
[2018-07-31] MEDS ORDERED: TRAZO50TA PO (09:21)
[2018-07-31] MEDS ORDERED: VENL75CA47 PO (09:21)
== END 2018-07-31 10:39 | disposition home or self-care (01) | DRG 755 ==
LOC: M ED 13:30 → M ED INP 17:49 → M PSY 18:52
PROVIDERS: ADMIT Psychiatry & Neurology Psychiatry; ATTEND Psychiatry & Neurology Psychiatry
DX: F43.10 Post-traumatic stress disorder, unspecified (principal); F41.9 Anxiety disorder, unspecified; F43.23 Adjustment disorder with mixed anxiety and depressed mood; Z72.89 Other problems related to lifestyle; Z79.899 Other long term (current) drug therapy; F17.210 Nicotine dependence, cigarettes, uncomplicated; M25.571 Pain in right ankle and joints of right foot

== ENCOUNTER 2018-08-11 14:00 | Outpatient (RCR) | payer MEDICAID ==
[~2018-08-11 14:00] MED LIST changes: +B121000T PO; +BUSP5TA PO; +CALC600T60 PO; +CITA-230 PO; +DULO30CA47 PO; +GABA600T4 PO; +HYDR-3363 PO; +PRAZ5CAP PO; +TRAZO50TA PO; +VENL75CA47 PO; +VITA200015 PO; +VITMTA PO; +VIVI380I IM
== END 2018-08-17 ==
LOC: M OUTALCOH 14:00
PROVIDERS: ATTEND Psychiatry & Neurology Psychiatry
DX: F10.20 Alcohol dependence, uncomplicated (principal); F17.200 Nicotine dependence, unspecified, uncomplicated

== ENCOUNTER → 2018-09-14 | Outpatient (RCR) | payer MEDICAID | LOC: M OUTALCOH 08-18 15:21 | PROVIDERS: ATTEND Psychiatry & Neurology Psychiatry | DX: F10.20 Alcohol dependence, uncomplicated (principal); F17.200 Nicotine dependence, unspecified, uncomplicated ==

== ENCOUNTER 2018-10-11 15:00 | Outpatient (RCR) | payer MEDICAID | END 2018-10-15 | LOC: M OUTALCOH 15:00 | PROVIDERS: ATTEND Psychiatry & Neurology Psychiatry | DX: F10.20 Alcohol dependence, uncomplicated (principal); F17.200 Nicotine dependence, unspecified, uncomplicated ==

== ENCOUNTER → 2018-11-01 | Outpatient (REF) | payer OTHER ==
[~2018-11-01] MED LIST changes: -CITA-230; -CITA-230 PO; +CITA20TA7; +CITA20TA7 PO
[2018-11-01 12:32] LABS: HEMOGLOBIN 14.2 g/dl (13.5-17.5); MEAN CORPUSCULAR HEMOGLOBIN 30.2 pg (27.0-33.0); MEAN CORPUSCULAR HGB CONC 32.3 g/dl (32.0-36.5); MEAN CORPUSCULAR VOLUME 93.6 fl (80.0-96.0); PLATELET COUNT, AUTOMATED 283 10^3/uL (150-450); WHITE BLOOD COUNT 7.7 10^3/uL (4.0-10.0)
[2018-11-01 13:12] LABS: ALBUMIN 3.8 GM/DL (3.2-5.2); ALT/SGPT 16 U/L (12-78); BILIRUBIN,TOTAL 0.6 MG/DL (0.2-1.0); BLOOD UREA NITROGEN 9 MG/DL (7-18); CALCIUM LEVEL 8.9 MG/DL (8.5-10.1); CARBON DIOXIDE LEVEL 30 MEQ/L (21-32); CHLORIDE LEVEL 106 MEQ/L (98-107); CHOLESTEROL LEVEL 168 MG/DL (<200); CREATININE FOR GFR 0.91 MG/DL (0.70-1.30); FERRITIN 32 NG/ML (26-388); FREE T4 0.91 NG/DL (0.76-1.46); GLOMERULAR FILTRATION RATE > 60.0 (>60); GLUCOSE, FASTING 94 MG/DL (70-100); HDL CHOLESTEROL 35 MG/DL (>40); LDL CHOLESTEROL 116 MG/DL (<100); NON-HDL-C 133 MG/DL; POTASSIUM SERUM 4.2 MEQ/L (3.5-5.1); SODIUM LEVEL 140 MEQ/L (136-145); THYROID STIMULATING HORMONE 0.821 uIU/ML (0.358-3.740); TOTAL 25(OH) VITAMIN D 48.3 NG/ML (30.0-100.0); TOTAL PROTEIN 6.2 GM/DL (6.4-8.2); TRIGLYCERIDES LEVEL 83 MG/DL (<150); VITAMIN B12 LEVEL 1384 PG/ML (247-911)
[2018-11-02 14:11] LABS: TESTOSTERONE FREE (DIRECT) 5.6 pg/mL (6.8-21.5)
== END ==
LOC: M SFHCADAM 10:02
PROVIDERS: ATTEND Family Medicine
DX: F33.2 Major depressive disorder, recurrent severe without psychotic features (principal); N52.9 Male erectile dysfunction, unspecified; G25.1 Drug-induced tremor; E78.5 Hyperlipidemia, unspecified; Z98.84 Bariatric surgery status; D51.8 Other vitamin B12 deficiency anemias; E55.9 Vitamin D deficiency, unspecified

== ENCOUNTER 2018-11-13 14:00 | Outpatient (RCR) | payer MEDICAID | END 2018-11-14 | LOC: M OUTALCOH 14:00 | PROVIDERS: ATTEND Psychiatry & Neurology Psychiatry | DX: F10.20 Alcohol dependence, uncomplicated (principal); F17.200 Nicotine dependence, unspecified, uncomplicated ==

== ENCOUNTER 2018-12-06 10:00 | Outpatient (RCR) | payer MEDICAID | END 2018-12-15 | LOC: M OUTALCOH 10:00 | PROVIDERS: ATTEND Psychiatry & Neurology Psychiatry | DX: F10.20 Alcohol dependence, uncomplicated (principal); F17.200 Nicotine dependence, unspecified, uncomplicated ==

== ENCOUNTER → 2019-01-01 | Outpatient (CLI) | payer OTHER ==
[~2019-01-01] MED LIST changes: +TRAZ1TAB10 PO; -TRAZO50TA PO
[2019-01-02 17:45] LABS: TESTOSTERONE FREE (DIRECT) 9.8 pg/mL (6.8-21.5)
== END ==
LOC: M WUC 08:15
PROVIDERS: ATTEND Family Medicine
DX: E34.9 Endocrine disorder, unspecified (principal)

== ENCOUNTER → 2019-01-02 | Outpatient (REF) ==
--- NOTE | 2019-01-02 15:19 | REP ---
RIGHT ANKLE, FOUR VIEWS: Four views of the right ankle performed. There is an old healed fracture of the distal tibia. Two metallic screws are seen in the distal tibia. There is mild to moderate narrowing of the tibiotalar joint with subchondral sclerosis. Large spurs are seen at the anterior aspect of the distal end of the tibia as well as the adjacent talus. The appearance is compatible with anterior ankle impingement. There is mild posterior malleolar spurring. There is a tiny spur of the posterior calcaneus. There is mild spurring of the dorsal aspect of the navicular bone. IMPRESSION: Arthritic changes as above. Old healed fracture distal tibia. There is narrowing of the tibiotalar joint. There are large spurs of the anterior aspect of the distal end of the tibia and adjacent talus compatible with the anterior ankle impingement. Electronically Signed by Alan Zazueta MD 01/02/2019 04:44 P
--- NOTE | 2019-01-02 15:22 | REP ---
RIGHT KNEE SERIES: Five views right knee performed. There is no acute fracture or dislocation. Metallic screws are seen in the distal end of the femur. There is an oval calcification along the margin of the medial femoral condyle, which has a maximum diameter 1.4 cm. This could represent an old fracture fragment. There is moderate medial joint space narrowing with vacuum. There is mild lateral joint space narrowing. There is mild to moderate diffuse spurring. There is mild patellofemoral compartment narrowing. Moderate spurring is seen of the anterior aspect of the medial femoral condyle. There is mild spurring of the patellar facets. I do not see a significant joint effusion. IMPRESSION: Metallic screws in the distal femur. Moderate degenerative changes of the knee. Electronically Signed by Alan Zazueta MD 01/02/2019 04:45 P
== END ==
LOC: M SMT 13:56
PROVIDERS: ATTEND Internal Medicine
DX: M51.36 Other intervertebral disc degeneration, lumbar region (principal)

== ENCOUNTER 2019-01-10 11:00 | Outpatient (RCR) | payer MEDICAID | END 2019-01-14 | LOC: M OUTALCOH 11:00 | PROVIDERS: ATTEND Psychiatry & Neurology Psychiatry | DX: F10.20 Alcohol dependence, uncomplicated (principal); F17.200 Nicotine dependence, unspecified, uncomplicated ==

== ENCOUNTER 2019-01-25 07:54 | Outpatient (RCR) | payer MEDICAID | END 2019-02-14 | LOC: M OUTALCOH 07:54 | PROVIDERS: ATTEND Psychiatry & Neurology Psychiatry | DX: F10.20 Alcohol dependence, uncomplicated (principal); F17.200 Nicotine dependence, unspecified, uncomplicated ==

== ENCOUNTER 2019-03-23 10:23 | Outpatient (RCR) | payer MEDICAID | END 2019-04-16 | LOC: M OUTALCOH 10:23 | PROVIDERS: ATTEND Psychiatry & Neurology Psychiatry | DX: F10.20 Alcohol dependence, uncomplicated (principal); F17.200 Nicotine dependence, unspecified, uncomplicated ==

== ENCOUNTER 2019-04-18 08:33 | Outpatient (RCR) | payer MEDICAID ==
[2019-04-18] MEDS ORDERED: CELE20TA PO (18:41)
[2019-04-18] MEDS ORDERED: [UNRECOGNIZED DRUG - MIXTURE] (18:56)
== END 2019-05-17 ==
LOC: M OUTALCOH 08:33
PROVIDERS: ATTEND Psychiatry & Neurology Psychiatry
DX: F10.20 Alcohol dependence, uncomplicated (principal); F17.200 Nicotine dependence, unspecified, uncomplicated

== ENCOUNTER 2019-04-18 18:20 | Emergency (ER) | payer MEDICAID, OTHER ==
[~2019-04-18] VITALS: Ht 172.7 cm; Wt 70.0 kg
[2019-04-18] MEDS ORDERED: CELE20TA PO (18:41)
[2019-04-18 18:50] LABS: BASO % 0.5 % (0.0-1.0); EOS # 0.1 10^3/uL (0.0-0.5); EOS % 0.8 % (0.0-3.0); HEMATOCRIT 44.6 % (42.0-52.0); HEMOGLOBIN 15.4 g/dl (13.5-17.5); LYMPH # 2.5 10^3/uL (1.5-5.0); LYMPH % 28.1 % (24.0-44.0); MEAN CORPUSCULAR HEMOGLOBIN 31.8 pg (27.0-33.0); MEAN CORPUSCULAR HGB CONC 34.5 g/dl (32.0-36.5); MONO # 0.7 10^3/uL (0.0-0.8); MONO % 7.8 % (0.0-5.0); NEUTROPHILS # 5.5 10^3/uL (1.5-8.5); NEUTROPHILS % 62.6 % (36.0-66.0); PLATELET COUNT, AUTOMATED 265 10^3/uL (150-450); RED BLOOD COUNT 4.85 10^6/uL (4.30-6.10); WHITE BLOOD COUNT 8.8 10^3/uL (4.0-10.0)
[2019-04-18] MEDS ORDERED: [UNRECOGNIZED DRUG - MIXTURE] (18:56)
--- NOTE | 2019-04-18 18:59 | REP ---
The portable chest, single AP view with the patient sitting, 06:33 p.m.: Comparison is 08/03/2006. The lung aguila are clear. The cardiac size is normal. The polina, mediastinum, and skeletal structures are unremarkable. Impression: Negative portable chest. There is no interval change. Electronically Signed by Alan Briceño MD 04/18/2019 06:51 P
[2019-04-18 19:12] LABS: BLOOD UREA NITROGEN 9 MG/DL (7-18); CALCIUM LEVEL 9.2 MG/DL (8.5-10.1); CARBON DIOXIDE LEVEL 27 MEQ/L (21-32); CHLORIDE LEVEL 110 MEQ/L (98-107); CK-MB VALUE MASS < 1.0 NG/ML (<3.6); CPK CREATINE PHOSPHOKINASE 253 U/L (39-308); CREATININE FOR GFR 0.81 MG/DL (0.70-1.30); GLOMERULAR FILTRATION RATE > 60.0 (>60); GLUCOSE, FASTING 68 MG/DL (70-100); POTASSIUM SERUM 4.1 MEQ/L (3.5-5.1); SODIUM LEVEL 143 MEQ/L (136-145); TROPONIN I < 0.02 NG/ML (< 0.10)
[2019-04-18] MEDS ORDERED: NS 1,000 ML IV ONE (19:30)
[2019-04-18] MEDS ORDERED: GASTROGRAFIN SOLUTION 30ML (Q9963) As Ordered ONE (19:33)
[2019-04-18] MEDS: GASTROGRAFIN SOLUTION 30ML PO SCH ×2 (19:37→20:19)
[2019-04-18 19:41] LABS: ALBUMIN 3.5 GM/DL (3.2-5.2); ALT/SGPT 13 U/L (12-78); BILIRUBIN,DIRECT 0.1 MG/DL (0.0-0.2); BILIRUBIN,TOTAL 0.4 MG/DL (0.2-1.0); LIPASE 131 U/L (73-393); TOTAL PROTEIN 5.9 GM/DL (6.4-8.2)
[2019-04-18] MEDS ORDERED: ONDANSETRON 4MG/2ML VIAL (J2405) IV ONE (20:00)
[2019-04-18 20:04] LABS: ACETAMINOPHEN LEVEL < 2.0 UG/ML (10.0-30.0); ETHYL ALCOHOL (ETHANOL) 0.003 % (0.000-0.010); FREE T4 1.02 NG/DL (0.76-1.46); SALICYLATE LEVEL 3.8 MG/DL (5.0-30.0)
--- NOTE | 2019-04-18 20:51 | ECGEPIP ---
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
--- NOTE | 2019-04-18 21:07 | REPVR ---
PROCEDURE INFORMATION: Exam: US Duplex Lower Extremity Veins Exam date and time: 04/18/2019 8:47 PM Clinical history: 43 years old, male; Pain; Leg, lower; Bilateral; Additional info: Bilat leg pain R/O dvt TECHNIQUE: Imaging protocol: Real-time duplex ultrasound of the Lower Extremities with 2-D berg scale, color Doppler flow and spectral waveform analysis with image documentation. Complete exam focused on the bilateral lower extremity veins. COMPARISON: No relevant prior studies available. FINDINGS: Right deep veins: Unremarkable. The common femoral, femoral, proximal profunda femoral and popliteal veins are patent without thrombus. Normal Doppler waveforms. Normal compressibility and/or augmentation response. Right superficial veins: Saphenofemoral junction is patent without thrombus. Left deep veins: Unremarkable. The common femoral, femoral, proximal profunda femoral and popliteal veins are patent without thrombus. Normal Doppler waveforms. Normal compressibility and/or augmentation response. Left superficial veins: Saphenofemoral junction is patent without thrombus. Soft tissues: Unremarkable. IMPRESSION: No sonographic evidence of deep vein thrombosis. Electronically signed by: Alin Salazar On 04/18/2019 21:06:32 PM
[2019-04-18] MEDS ORDERED: ISOVUE-370 76% 100ML VIAL (Q9967) As Ordered ONE (21:21)
--- NOTE | 2019-04-18 22:06 | REPVR ---
PROCEDURE INFORMATION: Exam: CT Abdomen and pelvis with contrast Exam date and time: 04/18/2019 9:28 PM Clinical history: 43 years old, male; Abdominal pain; Generalized; Additional info: Generalized abd pain TECHNIQUE: Imaging protocol: Computed tomography of the abdomen and pelvis with intravenous contrast. Axial, coronal and sagittal reformatted images were created and reviewed. Radiation optimization: All CT scans at this facility use at least one of these dose optimization techniques: automated exposure control; mA and/or kV adjustment per patient size (includes targeted exams where dose is matched to clinical indication); or iterative reconstruction. Contrast material: ISOVUE 370; Contrast volume: 100 ml; Contrast route: IV; COMPARISON: No relevant prior studies available. FINDINGS: Lungs: Minimal dependent atelectatic change in the right lower lobe. Liver: 7 mm fat density lesion in the hepatic dome on the right, likely a lipoma. Gallbladder and bile ducts: No radiodense gallstones. No biliary ductal dilatation. Pancreas: Unremarkable. Spleen: Unremarkable. Adrenals: Unremarkable. Kidneys and ureters: No mass. No radiodense calculi. No hydronephrosis. Stomach and bowel: No bowel wall thickening. No obstruction. No pneumatosis. Appendix: Normal. Intraperitoneal space: No free fluid. No organized fluid collection. No free air. Vasculature: Minimal atherosclerotic disease. No aneurysm or dissection. Lymph nodes: No pathologically enlarged lymph nodes. Bladder: Unremarkable. Reproductive: Unremarkable. Bones/joints: No acute osseous abnormality. Degenerative changes. Soft tissues: Unremarkable. IMPRESSION: 1. No CT evidence of acute intra-abdominal or pelvic pathology. 2. Additional findings, as above. Electronically signed by: Alin Salazar On 04/18/2019 22:05:28 PM
--- NOTE | 2019-04-18 22:24 | REPVR ---
PROCEDURE INFORMATION: Exam: CT Angiography Chest With Contrast Exam date and time: 04/18/2019 9:28 PM Clinical history: 43 years old, male; Other: Pleuritic chest pain TECHNIQUE: Imaging protocol: Computed tomographic angiography of the chest with intravenous contrast. Axial, coronal and sagittal reformatted images were created and reviewed. 3D rendering: MIP reconstructed images were created and reviewed. Radiation optimization: All CT scans at this facility use at least one of these dose optimization techniques: automated exposure control; mA and/or kV adjustment per patient size (includes targeted exams where dose is matched to clinical indication); or iterative reconstruction. Contrast material: ISOVUE 370; Contrast volume: 100 ml; Contrast route: IV; COMPARISON: CR PORTABLE CHEST X-RAY 04/18/2019 6:31 PM FINDINGS: Pulmonary arteries: Contrast opacification satisfactory. No intraluminal filling defect. Aorta: Unremarkable. No aneurysm or dissection. Lungs: Mild central peribronchial thickening, suggestive of airway inflammation. Mild dependent atelectatic change in the right lower lobe. No consolidation. Pleural space: Unremarkable. No pneumothorax. No pleural effusion. Heart: Unremarkable. No cardiomegaly. No pericardial effusion. Lymph nodes: No pathologically enlarged lymph nodes. Bones/joints: No acute osseous abnormality. Mild degenerative changes. Soft tissues: Unremarkable. IMPRESSION: 1. No CT evidence of pulmonary embolism. 2. Additional findings, as above. Electronically signed by: Alin Salazar On 04/18/2019 22:24:09 PM
[2019-04-18 23:00] VITALS: BP 115/59
== END 2019-04-18 23:15 | disposition home or self-care (01) ==
LOC: M ED 18:20
DX: R52 Pain, unspecified (principal); R63.4 Abnormal weight loss; F32.9 Major depressive disorder, single episode, unspecified; F17.218 Nicotine dependence, cigarettes, with other nicotine-induced disorders; Z98.84 Bariatric surgery status
CPT/HCPCS: 71045; 71275; 74177; 80048; 80076; 82550; 82553; 83690; 84439; 84443; 85025; 93005; 93041; 93970; 94760; 96361; 96374; 99285; G0480; J2405; Q9967

== ENCOUNTER 2019-05-23 10:10 | Outpatient (RCR) | payer MEDICAID ==
[~2019-05-23 10:10] MED LIST changes: +CELE20TA PO; +[UNRECOGNIZED DRUG - MIXTURE]
== END 2019-06-16 ==
LOC: M OUTALCOH 10:10
PROVIDERS: ATTEND Psychiatry & Neurology Psychiatry
DX: F10.20 Alcohol dependence, uncomplicated (principal); F17.200 Nicotine dependence, unspecified, uncomplicated

== ENCOUNTER → 2019-06-29 | Outpatient (REF) | payer OTHER ==
[2019-06-29 13:51] LABS: BASO # 0.1 10^3/uL (0.0-0.2); BASO % 0.7 % (0.0-1.0); EOS # 0.1 10^3/uL (0.0-0.5); EOS % 1.3 % (0.0-3.0); HEMATOCRIT 46.4 % (42.0-52.0); LYMPH # 2.2 10^3/uL (1.5-5.0); LYMPH % 20.7 % (24.0-44.0); MEAN CORPUSCULAR HEMOGLOBIN 30.9 pg (27.0-33.0); MEAN CORPUSCULAR HGB CONC 32.3 g/dl (32.0-36.5); MEAN CORPUSCULAR VOLUME 95.7 fl (80.0-96.0); MONO # 0.9 10^3/uL (0.0-0.8); MONO % 8.2 % (0.0-5.0); NEUTROPHILS # 7.2 10^3/uL (1.5-8.5); NEUTROPHILS % 68.7 % (36.0-66.0); PLATELET COUNT, AUTOMATED 295 10^3/uL (150-450); RED BLOOD COUNT 4.85 10^6/uL (4.30-6.10); WHITE BLOOD COUNT 10.4 10^3/uL (4.0-10.0)
[2019-06-29 14:36] LABS: ALBUMIN 3.8 GM/DL (3.2-5.2); ALT/SGPT 14 U/L (12-78); BILIRUBIN,TOTAL 1.1 MG/DL (0.2-1.0); BLOOD UREA NITROGEN 7 MG/DL (7-18); CALCIUM LEVEL 9.1 MG/DL (8.5-10.1); CARBON DIOXIDE LEVEL 28 MEQ/L (21-32); CHLORIDE LEVEL 106 MEQ/L (98-107); CREATININE FOR GFR 0.86 MG/DL (0.70-1.30); GLOMERULAR FILTRATION RATE > 60.0 (>60); GLUCOSE, FASTING 82 MG/DL (70-100); POTASSIUM SERUM 4.8 MEQ/L (3.5-5.1); SODIUM LEVEL 141 MEQ/L (136-145); TOTAL PROTEIN 6.2 GM/DL (6.4-8.2)
== END ==
LOC: M SFHCPLAZ 11:28
PROVIDERS: ATTEND Nurse Practitioner Adult Health
DX: R19.7 Diarrhea, unspecified (principal)

== ENCOUNTER → 2019-07-03 | Outpatient (REF) | payer OTHER ==
[2019-07-03 16:12] LABS: BLOOD UREA NITROGEN 6 MG/DL (7-18); CARBON DIOXIDE LEVEL 30 MEQ/L (21-32); CHLORIDE LEVEL 106 MEQ/L (98-107); CREATININE FOR GFR 0.87 MG/DL (0.70-1.30); GLOMERULAR FILTRATION RATE > 60.0 (>60); GLUCOSE, FASTING 100 MG/DL (70-100); POTASSIUM SERUM 4.6 MEQ/L (3.5-5.1); SODIUM LEVEL 142 MEQ/L (136-145)
== END ==
LOC: M SFHCPLAZ 14:38
PROVIDERS: ATTEND Physician Assistant
DX: R19.7 Diarrhea, unspecified (principal)

== ENCOUNTER → 2019-07-19 | Outpatient (REF) | payer OTHER ==
[2019-07-19 13:16] LABS: HEMOGLOBIN A1c 5.6 %
[2019-07-19 13:20] LABS: CHOLESTEROL RISK RATIO 3.945 (<5)
== END ==
LOC: M SFHCADAM 09:44
PROVIDERS: ATTEND Family Medicine
DX: E74.8 Other specified disorders of carbohydrate metabolism (principal); E78.5 Hyperlipidemia, unspecified; E34.9 Endocrine disorder, unspecified; R19.7 Diarrhea, unspecified; R63.4 Abnormal weight loss; R10.84 Generalized abdominal pain

== ENCOUNTER 2019-07-25 08:04 | Outpatient (RCR) | payer MEDICAID | END 2019-08-17 | LOC: M OUTALCOH 08:04 | PROVIDERS: ATTEND Psychiatry & Neurology Psychiatry | DX: F10.20 Alcohol dependence, uncomplicated (principal); F17.200 Nicotine dependence, unspecified, uncomplicated ==

== ENCOUNTER 2019-09-05 09:01 | Outpatient (RCR) | payer MEDICAID | END 2019-09-15 | LOC: M OUTALCOH 09:01 | PROVIDERS: ATTEND Psychiatry & Neurology Addiction Medicine | DX: F10.20 Alcohol dependence, uncomplicated (principal); F17.200 Nicotine dependence, unspecified, uncomplicated ==

== ENCOUNTER 2019-10-17 08:12 | Outpatient (RCR) | payer MEDICAID | END 2019-11-15 | LOC: M OUTALCOH 08:12 | PROVIDERS: ATTEND Psychiatry & Neurology Addiction Medicine | DX: F10.20 Alcohol dependence, uncomplicated (principal); F17.200 Nicotine dependence, unspecified, uncomplicated ==

== ENCOUNTER 2019-12-04 08:03 | Outpatient (RCR) | payer MEDICAID | END 2019-12-16 | LOC: M OUTALCOH 08:03 | PROVIDERS: ATTEND Psychiatry & Neurology Addiction Medicine | DX: F10.20 Alcohol dependence, uncomplicated (principal); F17.200 Nicotine dependence, unspecified, uncomplicated ==

== ENCOUNTER → 2020-01-24 | Outpatient (CLI) | payer OTHER ==
[~2020-01-24] MED LIST changes: +CITA20TA6 PO; +TRAZ-257 PO
--- NOTE | 2020-01-24 10:56 | REP ---
REASON FOR EXAM: Venous insufficiency. TECHNIQUE: Multiple ultrasonographic images of the deep venous structures of the thigh were obtained from the common femoral vein to the popliteal vein along with Doppler interrogation and color flow Doppler images. FINDINGS: There is no abnormal echogenic material seen within any of the visualized deep venous structures that would suggest acute thrombosis. Coaptation is unremarkable throughout. Doppler interrogation shows an expected response to respiratory variability and augmentation. The color flow images show what appears to be a normal vascular pattern throughout. IMPRESSION: There is no ultrasonographic evidence of deep venous thrombosis involving any of the visualized deep venous structures of the bilateral thighs, as described above. ON THE RIGHT: Reflux was seen in the common femoral vein. An anterior accessory greater saphenous vein was not present. Reflux was seen in the greater saphenous vein at the saphenofemoral junction, the AP dimension of which measures 7 mm and the degree of reflux of which was seen to be 2.7 seconds. Reflux was seen in the greater saphenous vein at the mid thigh of 4.3 seconds duration, the AP dimension of which is 5.8 mm. Reflux was seen in the greater saphenous vein at the knee of 4.3 seconds duration, the AP dimension of which measures 4.3 mm. No reflux was seen in any portion of the superficial femoral vein, popliteal vein, or lesser saphenous vein the AP dimension of which is 3 mm. ON THE LEFT: Reflux was seen in the common femoral vein. An anterior accessory greater saphenous vein was present and reflux was noted in that vessel. The greater saphenous vein at the saphenofemoral junction was seen to be with reflux, the AP dimension of which measures 5.3 mm and the degree of reflux was timed at 1.6 seconds. The greater saphenous vein at the mid thigh was seen at reflux of 2.9 seconds duration the AP dimension of which is 2.6 mm. The greater saphenous vein at the knee was seen without reflux, the AP dimension of which measures 4.1 mm. No reflux was seen in any portion of the superficial femoral vein, popliteal vein or lesser saphenous vein, AP dimension of which measured 3.4 mm. IMPRESSION: Abnormal reflux study as described above. Electronically Signed by Luis Vinson DO 01/24/2020 04:55 P
== END ==
LOC: M RAD 07:59
PROVIDERS: ATTEND Physician Assistant
DX: I87.2 Venous insufficiency (chronic) (peripheral) (principal)

== ENCOUNTER 2020-01-30 13:07 | Outpatient (RCR) | payer MEDICAID ==
[~2020-01-30 13:07] MED LIST changes: -CITA20TA6 PO; -TRAZ-257 PO
[2020-03-13] MEDS ORDERED: CITA20TA6 PO (15:08)
[2020-03-13] MEDS ORDERED: TRAZ-257 PO (15:10)
== END 2020-02-15 ==
LOC: M OUTALCOH 13:07
PROVIDERS: ATTEND Psychiatry & Neurology Addiction Medicine
DX: F10.20 Alcohol dependence, uncomplicated (principal); F17.200 Nicotine dependence, unspecified, uncomplicated

== ENCOUNTER → 2020-03-09 | Outpatient (CLI) | payer MEDICAID ==
[~2020-03-09] MED LIST changes: +CITA20TA6 PO; +TRAZ-257 PO
== END ==
LOC: M LABSMTC 10:22
PROVIDERS: ATTEND Surgery Vascular Surgery
DX: Z11.59 Encounter for screening for other viral diseases (principal)
CPT/HCPCS: C9803; U0003

== ENCOUNTER 2020-03-14 07:52 | Day surgery (SDC) | payer OTHER ==
[~2020-03-14] VITALS: Ht 172.7 cm; Wt 70.3 kg
[2020-03-14] MEDS ORDERED: ONDANSETRON 4MG/2ML VIAL As Ordered ONE (08:04)
[2020-03-14] MEDS ORDERED: propofoL 200 MG/20 ML VIAL As Ordered ONE (08:04)
[2020-03-14] MEDS ORDERED: dexameTHASONE 4 MG/ML 1ML VIAL (J1100 PER 1MG) As Ordered ONE (08:04)
[2020-03-14] MEDS ORDERED: ACETAMINOPHEN 1000MG 100ML IV BTL (OFIRMEV) (J0131 PER 10MG) As Ordered ONE (08:04)
[2020-03-14] MEDS ORDERED: LIDOCAINE 2% 100MG/5ML SDV (FOR ANES.) As Ordered ONE (08:04)
[2020-03-14] MEDS ORDERED: MIDAZOLAM INJ 2MG/2ML VIAL (J2250 PER 1MG) As Ordered ONE (08:05)
[2020-03-14] MEDS ORDERED: fentaNYL 100 MCG/2 ML INJECTION (J3010) As Ordered ONE (08:05)
[2020-03-14] MEDS ORDERED: ceFAZolin 2 GM/D5W 50 ML IV BAG (J0690 PER 500MG) As Ordered ONE (08:14)
[2020-03-14] MEDS: ceFAZolin SOD 2 GM in IV 1 EA IV ONE (09:05)
[2020-03-14] MEDS ORDERED: KETAMINE HCL 200 MG/20 ML VIAL As Ordered ONE (09:30)
[2020-03-14] MEDS: HEPARIN SOD (PORCINE) 5000UNITS/ML 1ML VIAL/SYRINGE As Ordered ONE (09:31)
[2020-03-14] MEDS: LIDOCAINE W/EPINEPHRINE 1% 20ML VIAL As Ordered ONE (09:55)
[2020-03-14] MEDS: LIDOCAINE 1% MDV 20ML VIAL As Ordered ONE (10:00)
--- NOTE | 2020-03-14 10:18 | ROOPDOC ---
[facility] Report Of Operation Report of Operation DATE OF PROCEDURE: 03/14/20 PREPROCEDURE DIAGNOSES: RLE venous insufficiency POSTPROCEDURE DIAGNOSES: Same PROCEDURE: 1. US guided access right greater saphenous vein 2. Radiofrequency ablation right greater saphenous vein SURGEON: Pallavi Ghotra MD ANESTHESIA: Monitored anesthesia care and local INDICATION FOR PROCEDURE: Very pleasant 51yo gentleman with longstanding venous insufficiency and varicose veins, compliant with compression and elevation but still very symptomatic. Risks benefits and alternatives to RFA R GSV explained and patient is agreeable to proceed. Informed consent obtained. REPORT OF OPERATION: The patient was brought to the operating room in stable co ndition. MAC and antibiotics were administered without complication. A time out was performed. Local anesthesia was administered to the skin and subcutaneous tissue over the right GSV at the knee. A microneedle was used to access the vein, and a wire was advanced through this access under US guidance. A 7 Fr sheath was placed and flushed with saline. The RFA catheter was advanced up to the saphenofemoral junction. US confirmed the tip of the catheter to be 2 cm distal to the junction. Tumescence was injected around the length of the GSV under US guidance. The catheter tip was again checked with US to ensure it was 2 cm distal to the junction. Radiofrequency ablation was performed and a total of 7 cycles were performed. Pressure was held for hemostasis at the access site and steristrips applied. 4x4s, kerlex used to dress the thigh and the right leg was wrapped from the foot to the groin with srinivas wrap. The patient was allowed to awaken from anesthesia and taken to recovery in stable condition. ESTIMATED BLOOD LOSS: Approximately 2 mL. COMPLICATIONS: None. PLAN: Follow up next week with RLE venous US and clinic appointment. Rx percocet given. PALLAVI GHOTRA MD Mar 14, 2020 10:18
[2020-03-14 11:30] VITALS: BP 110/55
== END 2020-03-14 11:45 | disposition home or self-care (01) ==
LOC: M SDC 07:52
PROVIDERS: ATTEND Surgery Vascular Surgery
DX: I87.2 Venous insufficiency (chronic) (peripheral) (principal)
CPT/HCPCS: 36475; 76940; C1894; J0131; J0690; J1100; J1644; J2250; J2405; J3010

== ENCOUNTER → 2020-03-17 | Outpatient (CLI) | payer OTHER ==
--- NOTE | 2020-04-14 08:20 | REP ---
RIGHT LOWER EXTREMITY DOPPLER ULTRASOUND CLINICAL: Status post ablation. TECHNIQUE: Real-time berg scale and color Doppler evaluation of the right lower extremity using linear high frequency transducer. FINDINGS: Ultrasound examination from the common femoral vein to the popliteal vein demonstrates normal compressibility, flow, and wave patterns in response to respiration and augmentation. There is no evidence for deep vein thrombosis. The greater saphenous vein is occluded and consistent with a history of prior ablation. IMPRESSION: No evidence for deep vein thrombosis. MTDD
== END ==
LOC: M RAD 11:17
PROVIDERS: ATTEND Surgery Vascular Surgery
DX: I87.2 Venous insufficiency (chronic) (peripheral) (principal); I83.813 Varicose veins of bilateral lower extremities with pain

== ENCOUNTER → 2020-10-03 | Outpatient (REF) | payer MEDICARE, OTHER ==
[2020-10-03 13:18] LABS: HEMATOCRIT 48.5 % (42.0-52.0); HEMOGLOBIN 15.7 g/dl (13.5-17.5); MEAN CORPUSCULAR HEMOGLOBIN 31.3 pg (27.0-33.0); MEAN CORPUSCULAR HGB CONC 32.4 g/dl (32.0-36.5); MEAN CORPUSCULAR VOLUME 96.8 fl (80.0-96.0); PLATELET COUNT, AUTOMATED 309 10^3/uL (150-450); RED BLOOD COUNT 5.01 10^6/uL (4.30-6.10); WHITE BLOOD COUNT 8.1 10^3/uL (4.0-10.0)
[2020-10-03 13:52] LABS: ALBUMIN 3.9 GM/DL (3.2-5.2); ALT/SGPT 14 U/L (12-78); BILIRUBIN,TOTAL 0.5 MG/DL (0.2-1.0); BLOOD UREA NITROGEN 5 MG/DL (7-18); CARBON DIOXIDE LEVEL 30 MEQ/L (21-32); CHLORIDE LEVEL 109 MEQ/L (98-107); CHOLESTEROL LEVEL 156 MG/DL (<200); CREATININE FOR GFR 0.78 MG/DL (0.70-1.30); FERRITIN 9 NG/ML (26-388); GLOMERULAR FILTRATION RATE > 60.0 (>60); GLUCOSE, FASTING 84 MG/DL (70-100); HDL CHOLESTEROL 39 MG/DL (>40); LDL CHOLESTEROL 100 MG/DL (<100); NON-HDL-C 117 MG/DL; POTASSIUM SERUM 4.9 MEQ/L (3.5-5.1); SODIUM LEVEL 141 MEQ/L (136-145); TOTAL PROTEIN 6.4 GM/DL (6.4-8.2); TRIGLYCERIDES LEVEL 85 MG/DL (<150)
[2020-10-03 13:55] LABS: TOTAL 25(OH) VITAMIN D 26.4 NG/ML (30.0-100.0); VITAMIN B12 LEVEL 282 PG/ML (247-911)
== END ==
LOC: M SFHCADAM 09:05
PROVIDERS: ATTEND Family Medicine
DX: D51.8 Other vitamin B12 deficiency anemias (principal); F33.2 Major depressive disorder, recurrent severe without psychotic features; E78.5 Hyperlipidemia, unspecified; E55.9 Vitamin D deficiency, unspecified; Z98.84 Bariatric surgery status
CPT/HCPCS: 80053; 80061; 82306; 82607; 82728; 85027; G0463

== ENCOUNTER 2021-12-16 11:55 | Emergency (ER) | payer MEDICARE, OTHER ==
[~2021-12-16] VITALS: Ht 172.7 cm; Wt 72.9 kg
[~2021-12-16 11:55] MED LIST changes: +BUPR-71; -BUPR150T5
[2021-12-16] MEDS ORDERED: CITA40TA7 (12:21)
[2021-12-16 15:14] LABS: BASO # 0.1 10^3/uL (0.0-0.2); BASO % 0.8 % (0.0-1.0); EOS # 0.1 10^3/uL (0.0-0.5); EOS % 1.1 % (0.0-3.0); HEMATOCRIT 42.3 % (42.0-52.0); HEMOGLOBIN 13.8 g/dl (13.5-17.5); LYMPH # 2.5 10^3/uL (1.5-5.0); LYMPH % 30.2 % (24.0-44.0); MEAN CORPUSCULAR HEMOGLOBIN 30.3 pg (27.0-33.0); MEAN CORPUSCULAR HGB CONC 32.6 g/dl (32.0-36.5); MEAN CORPUSCULAR VOLUME 92.8 fl (80.0-96.0); MONO # 0.6 10^3/uL (0.0-0.8); MONO % 6.7 % (2.0-8.0); NEUTROPHILS # 5.1 10^3/uL (1.5-8.5); NEUTROPHILS % 60.8 % (36.0-66.0); PLATELET COUNT, AUTOMATED 291 10^3/uL (150-450); RED BLOOD COUNT 4.56 10^6/uL (4.30-6.10); WHITE BLOOD COUNT 8.3 10^3/uL (4.0-10.0)
[2021-12-16 15:31] LABS: INR 1.07; PROTHROMBIN TIME 14.3 SECONDS (12.7-14.5)
[2021-12-16 15:40] LABS: ALBUMIN 3.5 GM/DL (3.2-5.2); ALT/SGPT 16 U/L (12-78); BILIRUBIN,DIRECT < 0.1 MG/DL (0.0-0.2); BILIRUBIN,TOTAL 0.3 MG/DL (0.2-1.0); BLOOD UREA NITROGEN 6 MG/DL (7-18); CALCIUM LEVEL 9.1 MG/DL (8.5-10.1); CARBON DIOXIDE LEVEL 29 MEQ/L (21-32); CHLORIDE LEVEL 111 MEQ/L (98-107); CREATININE FOR GFR 0.82 MG/DL (0.70-1.30); ETHYL ALCOHOL (ETHANOL) < 0.003 % (0.000-0.010); GLOMERULAR FILTRATION RATE > 60.0 (>60); GLUCOSE, FASTING 95 MG/DL (70-100); POTASSIUM SERUM 4.7 MEQ/L (3.5-5.1); SODIUM LEVEL 142 MEQ/L (136-145); TOTAL PROTEIN 6.1 GM/DL (6.4-8.2)
[2021-12-16 16:00] VITALS: BP 139/76
== END 2021-12-16 16:19 | disposition home or self-care (01) ==
LOC: M ED 11:55
DX: R19.7 Diarrhea, unspecified (principal); F41.9 Anxiety disorder, unspecified; F43.10 Post-traumatic stress disorder, unspecified; Z87.891 Personal history of nicotine dependence; Z79.899 Other long term (current) drug therapy

== ENCOUNTER → 2022-02-18 | Outpatient (CLI) | payer MEDICARE, OTHER, MEDICAID ==
[~2022-02-18] MED LIST changes: +CITA40TA7
[2022-02-18 22:56] LABS: FREE T4 0.95 NG/DL (0.76-1.46); THYROID STIMULATING HORMONE 0.633 uIU/ML (0.358-3.740)
[2022-02-18 23:43] LABS: TOTAL 25(OH) VITAMIN D 40.8 NG/ML (30.0-100.0)
[2022-02-18 23:44] LABS: FOLATE 7.3 NG/ML
== END ==
LOC: M WUC 09:03
PROVIDERS: ATTEND Physician Assistant
DX: D51.8 Other vitamin B12 deficiency anemias (principal); E55.9 Vitamin D deficiency, unspecified; R20.2 Paresthesia of skin; Z79.899 Other long term (current) drug therapy

== ENCOUNTER → 2022-04-04 | Outpatient (CLI) | payer MEDICARE, OTHER ==
[~2022-04-04] MED LIST changes: -CITA40TA7; +CITA40TA7 PO
== END ==
LOC: M LABSMTC 11:35
PROVIDERS: ATTEND Anesthesiology
DX: Z01.812 Encounter for preprocedural laboratory examination (principal); Z20.822 Contact with and (suspected) exposure to COVID-19

== ENCOUNTER → 2022-04-05 | Outpatient (CLI) | payer MEDICARE, OTHER | LOC: M LAB 12:43 | PROVIDERS: ATTEND Internal Medicine Gastroenterology | DX: K52.9 Noninfective gastroenteritis and colitis, unspecified (principal) ==

== ENCOUNTER → 2022-04-06 | Outpatient (REF) | payer MEDICARE, OTHER | LOC: M LAB REF 09:47 | PROVIDERS: ATTEND Internal Medicine Gastroenterology | DX: K52.9 Noninfective gastroenteritis and colitis, unspecified (principal) ==

== ENCOUNTER 2022-04-09 09:37 | Day surgery (SDC) | payer MEDICARE, OTHER ==
[~2022-04-09] VITALS: Ht 172.7 cm; Wt 74.4 kg
[~2022-04-09 09:37] MED LIST changes: +NS 1,000 ML IV ONE
[2022-04-09] MEDS ORDERED: propofoL 200 MG/20 ML VIAL As Ordered ONE ×4 (11:52→12:14)
[2022-04-09] MEDS ORDERED: LIDOCAINE 2% 100MG/5ML SDV (FOR ANES.) As Ordered ONE (11:52)
[2022-04-09 13:23] VITALS: BP 123/66
== END 2022-04-09 13:24 | disposition home or self-care (01) ==
LOC: M OPP 09:37
PROVIDERS: ATTEND Internal Medicine Gastroenterology
DX: Z12.11 Encounter for screening for malignant neoplasm of colon (principal); D12.0 Benign neoplasm of cecum; D12.4 Benign neoplasm of descending colon; K64.4 Residual hemorrhoidal skin tags; K64.8 Other hemorrhoids; K57.30 Diverticulosis of large intestine without perforation or abscess without bleeding; K63.89 Other specified diseases of intestine; K44.9 Diaphragmatic hernia without obstruction or gangrene; K29.60 Other gastritis without bleeding; Z98.0 Intestinal bypass and anastomosis status; F17.290 Nicotine dependence, other tobacco product, uncomplicated; Z79.899 Other long term (current) drug therapy; Z98.84 Bariatric surgery status; Z80.1 Family history of malignant neoplasm of trachea, bronchus and lung; F32.9 Major depressive disorder, single episode, unspecified; F41.9 Anxiety disorder, unspecified

== ENCOUNTER 2022-06-29 18:32 | Inpatient (IN) | payer MEDICARE, OTHER ==
[~2022-06-29] VITALS: Ht 172.7 cm; Wt 75.0 kg
[~2022-06-29 18:32] MED LIST changes: -NS 1,000 ML IV ONE
[2022-06-29 20:05] LABS: BASO # 0.1 10^3/uL (0.0-0.2); BASO % 0.5 % (0.0-1.0); EOS # 0.1 10^3/uL (0.0-0.5); EOS % 0.5 % (0.0-3.0); HEMATOCRIT 42.2 % (42.0-52.0); HEMOGLOBIN 13.4 g/dl (13.5-17.5); LYMPH # 2.5 10^3/uL (1.5-5.0); LYMPH % 24.6 % (24.0-44.0); MEAN CORPUSCULAR HEMOGLOBIN 28.7 pg (27.0-33.0); MEAN CORPUSCULAR HGB CONC 31.8 g/dl (32.0-36.5); MEAN CORPUSCULAR VOLUME 90.4 fl (80.0-96.0); MONO # 1.1 10^3/uL (0.0-0.8); MONO % 10.9 % (2.0-8.0); NEUTROPHILS # 6.4 10^3/uL (1.5-8.5); NEUTROPHILS % 63.2 % (36.0-66.0); PLATELET COUNT, AUTOMATED 297 10^3/uL (150-450); RED BLOOD COUNT 4.67 10^6/uL (4.30-6.10); WHITE BLOOD COUNT 10.2 10^3/uL (4.0-10.0)
[2022-06-29] MEDS ORDERED: AMPICILLIN SOD/SULBACTAM SOD 3 GM in D5W MINI-BAG PLUS 100 ML IV ONE (20:15)
[2022-06-29] MEDS ORDERED: BOOSTRIX/ADACEL VACCINE (DIPHTH/PERTUSS/ACELL/TETANUS) 0.5ML SYR IM.IMMUN ONE (20:15)
[2022-06-29 20:25] LABS: BLOOD UREA NITROGEN 6 MG/DL (9-23); CALCIUM LEVEL 8.9 MG/DL (8.5-10.1); CARBON DIOXIDE LEVEL 28 MMOL/L (20-31); CHLORIDE LEVEL 108 MMOL/L (98-107); CREATININE FOR GFR 0.75 MG/DL (0.70-1.30); GLOMERULAR FILTRATION RATE > 60.0 (>60); GLUCOSE, FASTING 98 MG/DL (60-100); POTASSIUM SERUM 4.3 MMOL/L (3.5-5.1); SODIUM LEVEL 141 MMOL/L (136-145)
[2022-06-29] MEDS ORDERED: TRAZ-186 PO (21:49)
[2022-06-29] MEDS ORDERED: HOME MED LIST COMPLETE! XX SCH (21:55)
[2022-06-29 22:38] LABS: RSV AMPLIFICATION NEGATIVE (NEGATIVE)
[2022-06-30] MEDS: ACETAMINOPHEN TAB 650MG DOSE (2X325MG) PO PRN ×2 (00:55→09:01)
[2022-06-30] MEDS: AMPICILLIN SOD/SULBACTAM SOD 3 GM in D5W MINI-BAG PLUS 100 ML IV SCH ×2 (03:57→09:00)
[2022-06-30 06:25] LABS: HEMATOCRIT 42.5 % (42.0-52.0); HEMOGLOBIN 13.8 g/dl (13.5-17.5); MEAN CORPUSCULAR HGB CONC 32.5 g/dl (32.0-36.5); MEAN CORPUSCULAR VOLUME 89.3 fl (80.0-96.0); PLATELET COUNT, AUTOMATED 295 10^3/uL (150-450); RED BLOOD COUNT 4.76 10^6/uL (4.30-6.10); WHITE BLOOD COUNT 7.4 10^3/uL (4.0-10.0)
[2022-06-30 06:45] LABS: BLOOD UREA NITROGEN 6 MG/DL (9-23); CARBON DIOXIDE LEVEL 27 MMOL/L (20-31); CHLORIDE LEVEL 108 MMOL/L (98-107); CREATININE FOR GFR 0.73 MG/DL (0.70-1.30); GLOMERULAR FILTRATION RATE > 60.0 (>60); GLUCOSE, FASTING 90 MG/DL (60-100); POTASSIUM SERUM 4.5 MMOL/L (3.5-5.1); SODIUM LEVEL 140 MMOL/L (136-145)
[2022-06-30 08:45] VITALS: BP 153/72
[2022-06-30] MEDS ORDERED: CitaloPRAM (CeleXA) 20 MG TAB PO SCH (09:00)
[2022-06-30] MEDS ORDERED: ENOXAPARIN 40MG/0.4ML SYRINGE (J1650 PER 10MG) SC SCH (09:00)
[2022-06-30] MEDS ORDERED: traZODone 50 MG TAB PO PRN (11:05)
[2022-06-30] MEDS ORDERED: AMOX875T2 PO (13:13)
[2022-06-30 13:53] VITALS: BP 128/79
== END 2022-06-30 13:56 | disposition home or self-care (01) | DRG 605 ==
LOC: M ED 18:32 → M ED INP 21:55
PROVIDERS: ADMIT Family Medicine; ATTEND Family Medicine
DX: S61.259A Open bite of unspecified finger without damage to nail, initial encounter (principal); W55.01XA Bitten by cat, initial encounter; L08.9 Local infection of the skin and subcutaneous tissue, unspecified; Y92.9 Unspecified place or not applicable; F43.10 Post-traumatic stress disorder, unspecified; Z98.84 Bariatric surgery status; F17.290 Nicotine dependence, other tobacco product, uncomplicated; Z20.822 Contact with and (suspected) exposure to COVID-19; Z79.899 Other long term (current) drug therapy

== ENCOUNTER → 2023-05-19 | Outpatient (CLI) | payer MEDICARE ==
[~2023-05-19] MED LIST changes: +AMOX875T2 PO; +TRAZ-186 PO
[2023-05-19 13:28] LABS: HEMATOCRIT 43.3 % (42.0-52.0); HEMOGLOBIN 13.5 g/dl (13.5-17.5); MEAN CORPUSCULAR HEMOGLOBIN 27.7 pg (27.0-33.0); MEAN CORPUSCULAR HGB CONC 31.2 g/dl (32.0-36.5); MEAN CORPUSCULAR VOLUME 88.7 fl (80.0-96.0); PLATELET COUNT, AUTOMATED 309 10^3/uL (150-450); RED BLOOD COUNT 4.88 10^6/uL (4.30-6.10); WHITE BLOOD COUNT 10.3 10^3/uL (4.0-10.0)
[2023-05-19 13:56] LABS: ALBUMIN 3.8 G/DL (3.2-5.2); ALKALINE PHOSPHATASE 103 U/L (46-116); ALT/SGPT 11 U/L (7.0-40); AST/SGOT 12 U/L (<34); BILIRUBIN,TOTAL 0.7 MG/DL (0.3-1.2); BLOOD UREA NITROGEN 7 MG/DL (9-23); CALCIUM LEVEL 9.4 MG/DL (8.5-10.1); CARBON DIOXIDE LEVEL 28 MMOL/L (20-31); CHLORIDE LEVEL 107 MMOL/L (98-107); CHOLESTEROL LEVEL 185 MG/DL (<200); CHOLESTEROL RISK RATIO 5.13 (<5); CREATININE FOR GFR 0.79 MG/DL (0.70-1.30); FERRITIN 4.5 NG/ML (10.5-307.3); FOLATE 22.75 NG/ML (>5.4); FREE T4 1.05 NG/DL (0.89-1.76); GLOMERULAR FILTRATION RATE > 60.0 (>60); GLUCOSE, FASTING 87 MG/DL (60-100); POTASSIUM SERUM 5.1 MMOL/L (3.5-5.1); SODIUM LEVEL 142 MMOL/L (136-145); TOTAL 25(OH) VITAMIN D 44.3 NG/ML (20.0-100.0); TOTAL PROTEIN 6.3 G/DL (5.7-8.2); TRIGLYCERIDES LEVEL 85 MG/DL (<150); VITAMIN B12 LEVEL 881 PG/ML (211-911)
== END ==
LOC: M PLALAB 08:02
PROVIDERS: ATTEND Family Medicine
DX: F33.2 Major depressive disorder, recurrent severe without psychotic features (principal); Z98.84 Bariatric surgery status; E78.5 Hyperlipidemia, unspecified; E55.9 Vitamin D deficiency, unspecified; D51.8 Other vitamin B12 deficiency anemias; Z79.899 Other long term (current) drug therapy

== ENCOUNTER → 2023-09-27 | Outpatient (CLI) | payer MEDICARE, MEDICAID, OTHER | LOC: M ADAMS 12:27 | PROVIDERS: ATTEND Family Medicine | DX: M17.11 Unilateral primary osteoarthritis, right knee (principal); M19.071 Primary osteoarthritis, right ankle and foot ==

== ENCOUNTER → 2023-11-23 | Outpatient (REF) | payer MEDICARE, MEDICAID, OTHER | LOC: M LAB REF 16:08 | PROVIDERS: ATTEND Surgery | DX: L72.3 Sebaceous cyst (principal) ==

== ENCOUNTER → 2024-04-06 | Outpatient (REF) | payer MEDICARE ==
[~2024-04-06] MED LIST changes: +GABA-1490 PO; -GABA600T4 PO
[2024-04-06 17:36] LABS: ALBUMIN 3.5 G/DL (3.2-5.2); ALKALINE PHOSPHATASE 105 U/L (46-116); ALT/SGPT 12 U/L (7.0-40); AST/SGOT 10 U/L (<34); BILIRUBIN,TOTAL 0.4 MG/DL (0.3-1.2); BLOOD UREA NITROGEN 6 MG/DL (9-23); CALCIUM LEVEL 9.5 MG/DL (8.5-10.1); CARBON DIOXIDE LEVEL 31 MMOL/L (20-31); CHLORIDE LEVEL 112 MMOL/L (98-107); CHOLESTEROL LEVEL 197 MG/DL (<200); CHOLESTEROL RISK RATIO 6.19 (<5); CREATININE FOR GFR 0.82 MG/DL (0.70-1.30); GLOMERULAR FILTRATION RATE > 60.0 (>56); GLUCOSE, FASTING 82 MG/DL (60-100); HDL CHOLESTEROL 31.8 MG/DL (>40); LDL CHOLESTEROL 147.4 MG/DL (<100); MEAN CORPUSCULAR HEMOGLOBIN 32.9 pg (27.0-33.0); MEAN CORPUSCULAR HGB CONC 33.3 g/dl (32.0-36.5); MEAN CORPUSCULAR VOLUME 98.6 fl (80.0-96.0); NON-HDL-C 165.2 MG/DL; PLATELET COUNT, AUTOMATED 266 10^3/uL (150-450); POTASSIUM SERUM 4.8 MMOL/L (3.5-5.1); RED BLOOD COUNT 4.87 10^6/uL (4.30-6.10); SODIUM LEVEL 143 MMOL/L (136-145); TOTAL PROTEIN 6.1 G/DL (5.7-8.2); TRIGLYCERIDES LEVEL 89 MG/DL (<150); WHITE BLOOD COUNT 9.5 10^3/uL (4.0-10.0)
[2024-04-06 17:39] LABS: FERRITIN 9.7 NG/ML (10.5-307.3); TOTAL 25(OH) VITAMIN D 42.4 NG/ML (20.0-100.0); VITAMIN B12 LEVEL 430 PG/ML (211-911)
== END ==
LOC: M SFHCADAM 14:36
PROVIDERS: ATTEND Family Medicine
DX: D50.8 Other iron deficiency anemias (principal); D51.8 Other vitamin B12 deficiency anemias; E78.5 Hyperlipidemia, unspecified; Z98.84 Bariatric surgery status; Z13.1 Encounter for screening for diabetes mellitus; R63.4 Abnormal weight loss; Z79.899 Other long term (current) drug therapy

== ENCOUNTER → 2024-05-09 | Outpatient (CLI) | payer MEDICAID, MEDICARE | LOC: M RAD 15:51 | PROVIDERS: ATTEND Family Medicine | DX: H53.121 Transient visual loss, right eye (principal) ==

== ENCOUNTER → 2024-07-09 | Outpatient (REF) | payer MEDICARE ==
[2024-07-09 13:36] LABS: HEMATOCRIT 49.8 % (42.0-52.0); HEMOGLOBIN 16.1 g/dl (13.5-17.5); MEAN CORPUSCULAR HGB CONC 32.3 g/dl (32.0-36.5); PLATELET COUNT, AUTOMATED 241 10^3/uL (150-450); RED BLOOD COUNT 5.03 10^6/uL (4.30-6.10); WHITE BLOOD COUNT 8.2 10^3/uL (4.0-10.0)
[2024-07-09 13:53] LABS: HEMOGLOBIN A1c 5.1 % (4.0-6.0)
[2024-07-09 14:05] LABS: C REACTIVE PROTEIN QUANTITATIV < 0.50 MG/DL (<1.0)
[2024-07-09 14:06] LABS: ALBUMIN 3.5 G/DL (3.2-5.2); ALKALINE PHOSPHATASE 91 U/L (40-129); ALT/SGPT 9 U/L (7.0-40); AST/SGOT 14 U/L (<34); BILIRUBIN,TOTAL 0.5 MG/DL (0.3-1.2); BLOOD UREA NITROGEN 5 MG/DL (9-23); CALCIUM LEVEL 9.6 MG/DL (8.5-10.1); CARBON DIOXIDE LEVEL 30 MMOL/L (20-31); CHLORIDE LEVEL 107 MMOL/L (98-107); CREATININE FOR GFR 0.75 MG/DL (0.70-1.30); GLOMERULAR FILTRATION RATE > 60.0 (>56); GLUCOSE, FASTING 80 MG/DL (60-100); POTASSIUM SERUM 5.1 MMOL/L (3.5-5.1); SODIUM LEVEL 142 MMOL/L (136-145); TOTAL PROTEIN 6.6 G/DL (5.7-8.2)
[2024-07-09 14:07] LABS: FREE T4 1.15 NG/DL (0.89-1.76); THYROID STIMULATING HORMONE 1.203 uIU/ML (0.55-4.78)
== END ==
LOC: M SFHCADAM 10:37
PROVIDERS: ATTEND Family Medicine
DX: K52.9 Noninfective gastroenteritis and colitis, unspecified (principal); R63.4 Abnormal weight loss; R05.3 Chronic cough; Z79.899 Other long term (current) drug therapy

== ENCOUNTER → 2024-07-09 | Outpatient (CLI) | payer MEDICARE | LOC: M ADAMS 10:49 | PROVIDERS: ATTEND Family Medicine | DX: R63.4 Abnormal weight loss (principal); R05.3 Chronic cough ==

== ENCOUNTER → 2024-07-24 | Outpatient (CLI) | payer MEDICAID, MEDICARE | LOC: M RAD 12:07 | PROVIDERS: ATTEND Family Medicine | DX: G54.0 Brachial plexus disorders (principal) ==

== ENCOUNTER → 2024-08-03 | Outpatient (CLI) | payer MEDICARE ==
[~2024-08-03] MED LIST changes: +PROHANCE 279.3MG/ML 15ML VIAL ONE
== END ==
LOC: M PLAIMG 12:30
PROVIDERS: ATTEND Physical Medicine & Rehabilitation
DX: M25.522 Pain in left elbow (principal); M25.521 Pain in right elbow; M77.11 Lateral epicondylitis, right elbow; M77.12 Lateral epicondylitis, left elbow; R63.4 Abnormal weight loss; R10.11 Right upper quadrant pain; R05.3 Chronic cough; K56.1 Intussusception
CPT/HCPCS: 71260; 73223; 74177; A9576; Q9963; Q9967

== ENCOUNTER → 2024-08-03 | Outpatient (CLI) | payer MEDICARE ==
[~2024-08-03] MED LIST changes: +GASTROGRAFIN SOLUTION 30ML ONE; +ISOVUE-370 76% 100ML VIAL ONE; -PROHANCE 279.3MG/ML 15ML VIAL ONE
== END ==
LOC: M PLAIMG 12:29
PROVIDERS: ATTEND Family Medicine
DX: R63.4 Abnormal weight loss (principal); R10.11 Right upper quadrant pain; R05.3 Chronic cough; K56.1 Intussusception

== ENCOUNTER → 2024-08-09 | Outpatient (CLI) | payer MEDICARE ==
[~2024-08-09] MED LIST changes: -GASTROGRAFIN SOLUTION 30ML ONE; -ISOVUE-370 76% 100ML VIAL ONE; +PROHANCE 279.3MG/ML 15ML VIAL As Ordered ONE; +PROHANCE 279.3MG/ML 5ML VIAL As Ordered ONE
== END ==
LOC: M RAD 14:38
PROVIDERS: ATTEND Physical Medicine & Rehabilitation
DX: M25.511 Pain in right shoulder (principal); M50.30 Other cervical disc degeneration, unspecified cervical region; M47.9 Spondylosis, unspecified
CPT/HCPCS: 71552; 72156; A9576

== ENCOUNTER → 2024-09-10 | Outpatient (CLI) | payer MEDICARE, MEDICAID ==
[~2024-09-10] MED LIST changes: -PROHANCE 279.3MG/ML 15ML VIAL As Ordered ONE; -PROHANCE 279.3MG/ML 5ML VIAL As Ordered ONE
[2024-09-10 09:26] LABS: PLATELET COUNT, AUTOMATED 288 10^3/uL (150-450)
[2024-09-10 09:40] LABS: INR 1.07; PARTIAL THROMBOPLASTIN TIME 30.2 SECONDS (24.8-34.2); PROTHROMBIN TIME 14.2 SECONDS (12.5-14.5)
[2024-09-10 10:37] LABS: COLLAGEN EPINEPHRINE 134 SECONDS (74-162)
== END ==
LOC: M WUC 08:29
PROVIDERS: ATTEND Physical Medicine & Rehabilitation
DX: Z01.818 Encounter for other preprocedural examination (principal)

== ENCOUNTER → 2024-09-14 | Outpatient (CLI) | payer MEDICARE ==
[~2024-09-14] MED LIST changes: +E-Z-GAS II EFFERVESCENT PACKET (SODIUM BICARB./CITRIC ACID/SIMETHICONE) As Ordered ONE; +E-Z-HD 98% w/w 340GM SUSP BTL As Ordered ONE; +E-Z-PAQUE 96% w/w SUSP 176GM BTL As Ordered ONE
== END ==
LOC: M RAD 09:39
PROVIDERS: ATTEND Surgery
DX: K56.600 Partial intestinal obstruction, unspecified as to cause (principal)